=== PATIENT | female | born 1965 | race Hispanic/Latino ===

== ENCOUNTER 2023-05-09 12:52 | Emergency (ER) | payer BC, OTHER, SELFPAY ==
--- OUTSIDE RECORDS SUMMARY | 2023-05-09 12:56 | XMS REPORT | Continuity of Care Document ---
:1965 Author Organization [facility] t Address [address] [facility]. [address] [place] [address] Care Team Providers Name Role Phone HILTON Cook [facility], [facility] Primary Care P hysician Unavailable MORGAN RAZO Attending Clinician Unavailable Morgan Sun Attending Clinician Doctor Unassigned, [place] Attending Clinician Unavailable PADMINI LANDRY Attending Clinician Unavailable MORGAN RAZO Admitting Clinician Unavailable Problems Condition Condition Condition Status Onset Resolution Last Treating Co mments Source Name Details Category Date Date Treatment Clinician Date No known No known Disease Unive rs active active ity of problems problems [facility] Allergies, Adverse Reactions, Alerts Allergy Allergy Status Severity Reaction(s) Onset Inactive Treating Comm ents Source Name Type Date Date Clinician NO KNOWN Drug Active Univers ALLERGIE Class ity of S [facility] Social History Social Habit Start Date Stop Date Quantity Comments Source Exposure to Not sure [facility]-CoV-2 [facility] (event) Branch Alcohol intake 2021-12-26 2021-12-26 Current University 00:00:00 00:00:00 non-drinker of [facility] alcohol [place] (finding) Sex Assigned At [birth year] Universit y of 00:00:00 00:00:00 [facility] Smoking Status Start Date Stop Date Source Never smoker [facility] Medications Ordered Filled Start Stop Current Ordering Indication Dosage Frequency Signature Comments Components Source Medication Medication Date Date Medication? Clinician (SIG) Name Name ceci- Yes [id number] 1{tbl} Take 1 Univers acetaminoph 3-03 tablet by ity of en-caff 00:00: mouth [place] 50-325-40 00 every 4 Medical mg tablet (four) Branch hours as needed for Pain (scale 4-6). HYDROcodone Yes 1{tbl} Take 1 Tab Univers -acetaminop 9-06 by mouth ity of [place] 4 [place] 5[place] 5-325 mg 00 (four) Medica l tablet hours as Branch needed for Pain. HYDROcodone Yes 1{tbl} Take 1 Tab Univers -acetaminop 9-06 by mouth ity of [place] 00:[place] 4 [place] 5[place] 5-325 mg 00 (four) Medica l tablet hours as Branch needed for Pain. Immunizations Ordered Filled Immunization Date Status Comments [facility] e Immunization Name Name SARS-COV-2 COVID-19 2021-02-12 Completed Unive rsity of PFIZER VACCINE 00:00:00 [facility] SARS-COV-2 COVID-19 2021-02-12 Completed Unive rsity of PFIZER VACCINE 00:00:00 [facility] SARS-COV-2 COVID-19 2021-01-22 Completed Unive rsity of PFIZER VACCINE 00:00:00 [facility] SARS-COV-2 COVID-19 2021-01-22 Completed Unive rsity of PFIZER VACCINE 00:00:00 [facility] Vital Signs Vital Name Observation Time Observation Value Comments Source Systolic blood 2021-12-26 22:09:00 139 mm[Hg] Univer sity of pressure [facility] Diastolic blood 2021-12-26 22:09:00 75 mm[Hg] Unive rsity of pressure [facility] Heart rate 2021-12-26 22:09:00 80 /min [facility] Body temperature 2021-12-26 22:09:00 36.83 [facility] rate 2021-12-26 22:09:00 18 /min [facility] Body weight 2021-12-26 22:09:00 66.679 kg [facility] BMI 2021-12-26 22:09:00 30.72 kg/m2 [facility] Oxygen saturation in 2021-12-26 22:09:00 98 /min [facility] Arterial blood by [facility] Pulse oximetry Branch Procedures Procedure Date / Time Performed Performing Clinician Sourc e XR NASAL BONES 2021-12-26 22:43:57 Morgan Razo [place] [facility] f [facility] CONSENT/REFUSAL FOR 2021-12-26 22:00:45 Doctor Unassigned, No Un [facility] DIAGNOSIS AND Name [facility] TREATMENT Encounters Start End Encounter Admission Attending Care Care Encounter Source Date/Time Date/Time Type Type Clinicians Facility Department ID 2023-05-01 2023-05-01 Outpatient SFA S[facility] [id number] [facility] 10:47:58 10:47:58 [address] [facility] [place] 2023-04-17 2023-04-17 Outpatient SFA SFA [id number] [facility] 11:36:29 11:36:29 0623 [facility] [place] 2023-03-13 2023-03-13 Outpatient SFA SFA [id number] [facility] 14:14:07 14:14:07 0519 [facility] [place] 2023-01-26 2023-01-26 Outpatient SFA SFA [id number] [facility] 13:57:02 13:57:02 0403 [facility] [place] 2022-09-15 2022-09-15 Outpatient SFA SFA [id number] [facility] 14:43:29 14:43:29 [id number] [facility] 2021-12-26 2021-12-26 Emergency X DANNI [facility] ERT [id number] Univers 16:09:00 17:22:00 MORGAN hopkins [facility] 2021-12-26 2021-12-26 Emergency Danni [facility] [id number] Univers 16:09:00 17:22:00 Morgan VARGAS [id number] i ty [facility] [id number] [facility] [id number] [facility] 084 Branch 2021-12-26 2021-12-26 Orders Doctor SNÁCHEZ [id number] Univers 00:00:00 00:00:00 Only Unassigned, ZAINAB [id number] ity of [place] [facility] [id number] [facility] [id number] [address] 2021-02-12 2021-02-12 Outpatient Fabricio LANDRY [facility] [id number] [facility] 11:15:00 11:13:06 [facility] 2021-01-22 2021-01-22 Outpatient Fabricio LANDRY [facility] [id number] [facility] 11:20:00 11:12:01 [facility] Results Test Description Test Time Test Comments Results Result Comments Source CULTURE, URINE 2023-04-19 SPECIMEN NUMBER: 12:38:09 [id number] CULTURE, URINE SPECIMEN NUMBER: [id number] SOURCE: URINE REPORT STATUS: FINAL FINAL REPORT: 04/19/2023 <10,000 CFU/ML UROGENITAL CHIRAG PRESENT NO COMMON PATHOGENS UNLESS OTHERWISE INDICATED, ALL TESTING PERFORMED AT [facility] [address] [place], [place] [address] SENIOR ADVISORY: SID SRINIVASAN M.D. CLIA NUMBER [id number] [place]. [id number] CULTURE, URINE 2023-03-15 SPECIMEN NUMBER: 14:24:02 [id number] CULTURE, URINE SPECIMEN NUMBER: [id number] SPECIMEN COMMENT: URINE SOURCE: URINE REPORT STATUS: FINAL FINAL REPORT: 03/15/2023 NO GROWTH AFTER 36 HOURS INCUBATION UNLESS OTHERWISE INDICATED, ALL TESTING PERFORMED AT [facility] [address] [place] [address] SENIOR ADVISORY: SID SRINIVASAN M.D. CLIA NUMBER [id number] [place]. [id number] VITAMIN D, 25 OH 2023-03-14 05:39:12 Test Item Value Reference Range Interpretation Comme nts VITAMIN D, 25 OH (test 18 NG/ML SEE BELOW L E FFECTIVE 11/03/2022, PLEASE NOTE code = 4958) NEW METHODOLOGY IS ELECTROCHEMILUM INESCENCE BINDING ASSAY. NOTE: 25-HYDROX YVITAMIN D ASSAY INCLUDES 25-HYDROXYVITAM IN D2 AND D3. INTERPRETIVE RA NGES PEDIATRIC (<17 YEARS) . . . . . . . . . . . NG/ML 20-100ADULT: IN SUFFICIENT . . . . . . . . . . . . . . N G/ML <20 SUBOPTIMAL . . . . . . . . . . . . . . . NG/ML 20-29 OPTIMAL . . . . . . . . . . . . . . . . . NG/ML 30-100 VITAMIN [id number] 05:38:10 Test Item Value Reference Range Interpretation Comments VITAMIN B-12 (test 461 PG/ML 200-950 UNLESS O THERWISE code = 7380) INDICATED, ALL TESTING PERFORMED AT [facility] [employer] [address] [place] [address], [place] [id number] [place] [address] DIRECTOR: Akanksha CUEVAS SHER NUMBER [id number] CAP ACCREDITATION N O. [id number] CBC W/AUTO DIFF WITH [id number] 03:36:08 Test Item Value Reference Range Interpretation Comments WBC (test code = 8.0 K/UL 3.5-11.0 1001) RBC (test code = 4.15 M/UL 3.80-5.40 1002) HEMOGLOBIN (test code 12.2 G/DL 11.5-15.5 = 1003) HEMATOCRIT (test code 36.1 % 34.0-45.0 = 1004) MCV (test code = 87.0 fL 80.0-99.0 1005) MCH (test code = 29.4 PG 25.0-33.0 1006) MCHC (test code = 33.8 G/DL 31.0-36.0 1007) RDW (test code = 12.1 % 11.5-15.0 1038) NEUTROPHILS (test 61.6 % code = 1008) LYMPHOCYTES (test 29.7 % code = 1010) MONOCYTES (test code 7.0 % = 1011) EOSINOPHILS (test 0.9 % code = 1012) BASOPHILS (test code 0.4 % = 1013) IMMATURE GRANULOCYTES 0.4 % (test code = 1036) NUCLEATED RBCS (test 0.0 /100 WBC'S See_Comment [Aut omated code = 1065) message] The sy stem which generated this result transmitted reference range : 0.0. The refere nce range was not u sed to interpret th is result as normal/abnormal . PLATELET COUNT (test 349 K/UL 130-400 code = 1015) ABSOLUTE NEUTROPHILS 4.90 K/UL 1.50-7.50 (test code = 1066) ABSOLUTE LYMPHOCYTES 2.36 K/UL 1.00-4.00 (test code = 1067) ABSOLUTE MONOCYTES 0.56 K/UL 0.20-1.00 (test code = 1068) ABSOLUTE EOSINOPHILS 0.07 K/UL 0.00-0.50 (test code = 1040) ABSOLUTE BASOPHILS 0.03 K/UL 0.00-0.20 (test code = 1069) ABS IMMATURE 0.03 K/UL 0.00-0.10 GRANULOCYTES (test code = 1020) ABS NUCLEATED RBCS 0.00 K/UL 0.00-0.11 (test code = 73764) PAP TEST, [id number] 09:35:37 Test Item Value Reference Range Interpretation Comments SOURCE: (test Cervical code = 8001) SLIDES: (test 1 code = 8011) LMP: (test code SEE NOTE POST MENOPA USAL = 8027) SPECIMEN (NOTE) Satisfactory f or ADEQUACY: (test evaluation. code = 50050) Endocervical cells/transform ation zone component present. INTERPRETATION: NILM/NO EPITH. (test code = ABNORMALITY;SEE 71752) BELOW ------- ---- NEGATI VE FOR INTRAEPITHELIAL LESION OR MALIGNANCY ( NILM) ------- ------- ------- ------- OTHER COMMENTS: (NOTE) Atrophic lizette nges (test code = present.Partial ly 8081) obscuring infla mmation is present. POST FRAMER Sujey Graham : (test code = 8101) QC TECHNOLOGIST: Shirin (test code = Diego,SCT(ASCP) 8111) CT(IAC) LOCATION: (test (NOTE) Specimens pr ocessed code = 95813) and interprete d at [facility], [address] [place] [address] [phone], Phone: , CLIA: [id number] CPT: (test code (NOTE) 27914 The Pa p test is = 8140) a screening jorge t with an inherent, bu t low probability of error. Your patient sh ould be reminded to con sult you immediately if she experiences any suspicious sign s or symptoms, regar dless of her Pap test result. An alte rnate report format containing imag es or consolidated pr ior Pap history is avai lable as applicable. UNLESS OTHERWISE INDIC ATED, ALL TESTING PER FORMED ATCLINICAL PATH [facility]LOGY [facility], [facility] [place]. [address] [place] [address] [facility] DIRECTOR: JEY KAISER M.D. CLIA NUMBER [id number] CAP ACCREDITATION N O. [id number]
[2023-05-09] MEDS ORDERED: NA CHLORIDE 0.9% 1,000 ML ONE (13:26)
--- NOTE | 2023-05-09 13:28 | RAD REPORT ---
EXAM DESCRIPTION: RAD - Chest Single View - 05/09/2023 1:05 pm CLINICAL HISTORY: COUGH Chest pain. COMPARISON: CHEST PA AND LAT 2 VIEW dated 01/09/2010 FINDINGS: Portable technique limits examination quality. The lungs are grossly clear. The heart is normal in size. No displaced fractures. IMPRESSION: No acute intrathoracic process suspected.
--- NOTE | 2023-05-09 13:29 | RAD REPORT ---
EXAM DESCRIPTION: CT - Head Brain Wo Cont - 05/09/2023 1:22 pm CLINICAL HISTORY: Dizziness;Syncope Headache, drowsiness COMPARISON: No comparisons TECHNIQUE: All CT scans are performed using dose optimization technique as appropriate and may inclu de automated exposure control or mA/KV adjustment according to patient size. FINDINGS: No intracranial hemorrhage, hydrocephalus or extra-axial fluid collection.No areas of brai n edema or evidence of midline shift. The paranasal sinuses and mastoids are clear. The calvarium is intact. IMPRESSION: No acute intracranial abnormality.
[2023-05-09 13:45] LABS: Specific Gravity 1.013 (1.005-1.030); Urine Bacteria None Seen /HPF (<20); Urine Bilirubin NEGATIVE (Negative); Urine Blood Negative (Negative); Urine Clarity Extremely Turbid (Clear); Urine Color Light-Yellow (Yellow); Urine Glucose NEGATIVE (Negative); Urine Mucus Slight /HPF (None Seen); Urine Protein NEGATIVE (Negative); Urine Urobilinogen Normal (Normal)
[2023-05-09 14:15] LABS: Absolute Lymphocytes (CBC) 1.7 K/uL (0.7-4.9); Hematocrit 39.9 % (36.0-45.0); MCV 86.5 fL (80-100); MPV 9.2 fL (7.6-11.3); RBC Red Blood Cell Count 4.62 M/uL (3.86-4.86)
[2023-05-09 14:20] LABS: Protime INR 0.98
[2023-05-09 14:28] LABS: ALT/SGPT 22 U/L (13-56); AST/SGOT 17 U/L (15-37); Albumin 3.6 g/dL (3.4-5.0); Alkaline Phosphatase 79 U/L (45-117); BUN Blood Urea Nitrogen 15 mg/dL (7-18); Bicarbonate 29 mEq/L (21-32); Bilirubin Total 0.3 mg/dL (0.2-1.0); Glomerular Filtration Rate 90 ml/min (=/>90); Glucose Level 93 mg/dL (74-106); Lipase 37 U/L (13-75); Magnesium 2.4 mg/dL (1.6-2.4); NT PRO-BNP 43 pg/mL (<125); Potassium 3.8 mEq/L (3.5-5.1); Protein, Total 7.6 g/dL (6.4-8.2); Sodium Level 140 mEq/L (136-145)
[2023-05-09 14:35] LABS: Bilirubin Direct < 0.1 mg/dL (0-0.2); Bilirubin Indirect, Calculated ND mg/dL (0.2-0.8); Troponin High Sensitivity < 3.0 pg/mL (<58.9)
--- NOTE | 2023-05-09 15:31 | ER ---
Nurse's Notes [facility] Name: Dayanara Plummer Age: 58 yrs Sex: Female : 1965 Arrival Date: 05/09/2023 Time: 12:52 Bed 20 Private MD: Diagnosis: UTI/ Urinary tract infection, site not specified;Syncope Near Presentation: 05/09 12:54 Chief complaint: EMS states: patient started feeling bad after eating at [facility], then had ap3 a syncopal episode at [facility]. Coronavirus screen: At this time, the client does not indicate any symptoms associated with coronavirus-19. Ebola Screen: No symptoms or risks identified at this time. Initial Sepsis Screen: Does the patient meet any 2 criteria? No. Patient's initial sepsis screen is negative. Does the patient have a suspected source of infection? No. Patient's initial sepsis screen is negative. Risk Assessment: Do you want to hurt yourself or someone else? Patient reports no desire to harm self or others. Onset of symptoms was May 09, 2023. 12:54 Method Of Arrival: EMS: [facility] ap3 12:54 Acuity: YANET 3 ap3 12:56 Care prior to arrival: Medication(s) given: zofran 4 mg, IV initiated. 20 GA, in the ap3 right hand. Triage Assessment: 12:56 General: Appears in no apparent distress. Behavior is calm, cooperative, appropriate ap3 for age. Pain: Complains of pain in head Pain currently is 1 out of 10 on a pain scale. Neuro: Level of Consciousness is awake, alert, obeys commands, Oriented to person, place, time, situation. Neuro: Reports a syncopal episode. Cardiovascular: Patient's skin is warm and dry. Respiratory: Airway is patent Respiratory effort is even, unlabored, Respiratory pattern is regular, symmetrical. Historical: - Allergies: 12:56 No Known Allergies; ap3 - Home Meds: 12:56 None [Active]; ap3 - PMHx: 12:56 None; ap3 - Immunization history:: Client reports receiving the 2nd dose of the Covid vaccine. - Social history:: Smoking status: Patient denies any tobacco usage or history of. Screenin:57 [facility] ED Fall Risk Assessment (Adult) History of falling in the last 3 months, ap3 including since admission Yes- single mechanical fall (1 pt) Confusion or Disorientation No (0 pts) Intoxicated or Sedated No (0 pts) Impaired Gait No (0 pts) Mobility Assist Device Used No (0 pt) Altered Elimination No (0 pt). Abuse screen: Denies threats or abuse. Nutritional screening: No deficits noted. Tuberculosis screening: No symptoms or risk factors identified. Assessment: 15:35 Reassessment: awaiting completion of fluids prior to patients departure. ap3 Vital Signs: 12:54 BP 144 / 80; Pulse 85; Resp 17; Temp 98.2; Pulse Ox 95% ; Weight 63.96 kg; Height 4 ft. ap3 10 in. ; 14:33 Pulse 80; Resp 17; Pulse Ox 99% on R/A; ap3 14:50 BP 127 / 70; Pulse 83; Resp 17; Pulse Ox 98% on R/A; ap3 15:23 BP 124 / 68 Supine; Pulse 79; ap3 15:27 BP 136 / 66 Sitting; Pulse 82; ap3 15:30 BP 133 / 73 Standing; Pulse 77; ap3 12:54 Body Mass Index 29.47 (63.96 kg, 147.32 cm) ap3 ED Course: 12:54 Patient arrived in ED. ap3 12:54 Alden Palacios MD is Attending Physician. [facility] 12:55 Triage completed. ap3 12:57 Genie Gagnon, KATHY is Primary Nurse. ap3 12:57 Arm band placed on right wrist. ap3 12:57 Patient has correct armband on for positive identification. Bed in low position. Call ap3 light in reach. Side rails up X2. Pulse ox on. NIBP on. 13:07 XRAY Chest (1 view) In Process Unspecified. EDMS 13:24 CT Head Brain wo Cont In Process Unspecified. EDMS 15:36 Provided Education on: medications prior to administration. ap3 15:36 No provider procedures requiring assistance completed. ap3 15:55 IV discontinued, intact, bleeding controlled, No redness/swelling at site. Pressure ap3 dressing applied. 15:56 Pt visited by daughter. ap3 Administered Medications: 14:02 Drug: NS 0.9% IV 1000 ml Route: IV; Rate: 1 bolus; Site: right hand; ap3 15:35 Follow up: IV Status: Completed infusion ap3 15:34 Drug: Rocephin IV 1 grams Route: IV; Rate: per protocol; Site: right antecubital; ap3 15:50 Follow up: IV Status: Completed infusion ap3 Medication: 12:57 VIS not applicable for this client. ap3 Outcome: 15:31 Discharge ordered by . lizette 15:55 Discharged to home ambulatory, with family. ap3 15:55 Condition: good 15:55 Discharge instructions given to patient, family, Instructed on discharge instructions, follow up and referral plans. Demonstrated understanding of instructions, follow-up care, medications, Prescriptions given X 2. 15:59 Patient left the ED. ap3 Signatures: Dispatcher [employer] EDMS Alden Palacios MD MD cha Prokisch, Amanda, RN RN ap3
--- NOTE | 2023-05-09 15:31 | EDPHYS ---
Physician Documentation [facility] Name: Dayanara Plummer Age: 58 yrs Sex: Female : 1965 Arrival Date: 05/09/2023 Time: 12:52 Bed 20 Private MD: ED Physician Alden Palacios HPI: 05/09 15:25 This 58 yrs old Female presents to ER via EMS with complaints of Syncope. lizette 15:25 The patient has experienced near-syncope, almost passed out, felt dizzy. Onset: The lizette symptoms/episode began/occurred just prior to arrival. Duration: This was a single episode, that lasted 0 second(s). Context: the episode(s) was witnessed, by a bystander, occurred occurred while the patient was walking. Associated injury: The patient did not suffer any apparent associated injury. Associated signs and symptoms: The patient has no apparent associated signs or symptoms. Current symptoms: Currently, the patient is not experiencing any symptoms, the patient feels back to baseline. The patient has not experienced similar symptoms in the past. Historical: - Allergies: 12:56 No Known Allergies; ap3 - Home Meds: 12:56 None [Active]; ap3 - PMHx: 12:56 None; ap3 - Immunization history:: Client reports receiving the 2nd dose of the Covid vaccine. - Social history:: Smoking status: Patient denies any tobacco usage or history of. ROS: 15:26 Constitutional: Negative for fever, chills, and weight loss, Eyes: Negative for injury, lizette pain, redness, and discharge, ENT: Negative for injury, pain, and discharge, Neck: Negative for injury, pain, and swelling, Cardiovascular: Negative for chest pain, palpitations, and edema, Respiratory: Negative for shortness of breath, cough, wheezing, and pleuritic chest pain, Back: Negative for injury and pain, : Negative for injury, bleeding, discharge, and swelling, MS/Extremity: Negative for injury and deformity, Skin: Negative for injury, rash, and discoloration, Psych: Negative for depression, anxiety, suicide ideation, homicidal ideation, and hallucinations, Allergy/Immunology: Negative for hives, rash, and allergies, Endocrine: Negative for neck swelling, polydipsia, polyuria, polyphagia, and marked weight changes, Hematologic/Lymphatic: Negative for swollen nodes, abnormal bleeding, and unusual bruising. 15:26 Abdomen/GI: Positive for nausea. 15:26 Neuro: Positive for near syncope, weakness, Negative for altered mental status, dizziness, gait disturbance, headache, numbness, seizure activity, speech changes. Exam: 15:30 Constitutional: This is a well developed, well nourished patient who is awake, alert, lizette and in no acute distress. Head/Face: Normocephalic, atraumatic. Eyes: Pupils equal round and reactive to light, extra-ocular motions intact. Lids and lashes normal. Conjunctiva and sclera are non-icteric and not injected. Cornea within normal limits. Periorbital areas with no swelling, redness, or edema. ENT: Nares patent. No nasal discharge, no septal abnormalities noted. Tympanic membranes are normal and external auditory canals are clear. Oropharynx with no redness, swelling, or masses, exudates, or evidence of obstruction, uvula midline. Mucous membranes moist. Neck: Trachea midline, no thyromegaly or masses palpated, and no cervical lymphadenopathy. Supple, full range of motion without nuchal rigidity, or vertebral point tenderness. No Meningismus. Chest/axilla: Normal chest wall appearance and motion. Nontender with no deformity. No lesions are appreciated. Cardiovascular: Regular rate and rhythm with a normal S1 and S2. No gallops, murmurs, or rubs. Normal PMI, no JVD. No pulse deficits. Respiratory: Lungs have equal breath sounds bilaterally, clear to auscultation and percussion. No rales, rhonchi or wheezes noted. No increased work of breathing, no retractions or nasal flaring. Abdomen/GI: Soft, non-tender, with normal bowel sounds. No distension or tympany. No guarding or rebound. No evidence of tenderness throughout. Back: No spinal tenderness. No costovertebral tenderness. Full range of motion. Skin: Warm, dry with normal turgor. Normal color with no rashes, no lesions, and no evidence of cellulitis. MS/ Extremity: Pulses equal, no cyanosis. Neurovascular intact. Full, normal range of motion. Neuro: Awake and alert, GCS 15, oriented to person, place, time, and situation. Cranial nerves II-XII grossly intact. Motor strength 5/5 in all extremities. Sensory grossly intact. Cerebellar exam normal. Normal gait. Psych: Awake, alert, with orientation to person, place and time. Behavior, mood, and affect are within normal limits. 15:30 ECG was reviewed by the Attending Physician. Vital Signs: 12:54 BP 144 / 80; Pulse 85; Resp 17; Temp 98.2; Pulse Ox 95% ; Weight 63.96 kg; Height 4 ft. ap3 10 in. ; 14:33 Pulse 80; Resp 17; Pulse Ox 99% on R/A; ap3 14:50 BP 127 / 70; Pulse 83; Resp 17; Pulse Ox 98% on R/A; ap3 15:23 BP 124 / 68 Supine; Pulse 79; ap3 15:27 BP 136 / 66 Sitting; Pulse 82; ap3 15:30 BP 133 / 73 Standing; Pulse 77; ap3 12:54 Body Mass Index 29.47 (63.96 kg, 147.32 cm) ap3 MDM: 12:54 Patient medically screened. lizette 15:29 Differential diagnosis: Nonspecific abd pain, viral gastroenteritis, gastroenteritis. lizette Differential Diagnosis: cardiac arrhythmia, cerebrovascular accident, emotional response, seizure, transient ischemic attack, vasovagal episode. Data reviewed: vital signs, nurses notes, lab test result(s), EKG, radiologic studies, CT scan, plain films. Consideration of Admission/Observation Escalation of care including admission/observation considered. I considered the following discharge prescriptions or medication management in the emergency department Medications were administered in the Emergency Department. See MAR. Test considered but Not performed: MRI: no mri brain. Historians other than the Patient: Daughter/Son: daughter. Care significantly affected by the following chronic conditions: none. 05/09 12:55 Order name: Basic Metabolic Panel; Complete Time: 15:23 lizette 05/09 12:55 Order name: CBC with Diff; Complete Time: 15:23 lizette 05/09 12:55 Order name: LFT's; Complete Time: 15:23 05/09 12:55 Order name: Magnesium; Complete Time: 15:23 lizette 05/09 12:55 Order name: NT PRO-BNP; Complete Time: 15:23 05/09 12:55 Order name: PT-INR; Complete Time: 15:23 05/09 12:55 Order name: Troponin HS; Complete Time: 15:23 05/09 12:55 Order name: Lipase; Complete Time: 15:23 05/09 12:55 Order name: Urinalysis w/ reflexes; Complete Time: 15:23 lizette 05/09 12:55 Order name: XRAY Chest (1 view); Complete Time: 15:23 lizette 05/09 12:55 Order name: CT Head Brain wo Cont; Complete Time: 15:23 lizette 05/09 12:55 Order name: EKG; Complete Time: 12:56 05/09 12:55 Order name: Cardiac monitoring; Complete Time: 13:46 05/09 12:55 Order name: EKG - Nurse/Tech; Complete Time: 13:46 05/09 12:55 Order name: IV Saline Lock; Complete Time: 12:58 [facility] 05/09 12:55 Order name: Labs collected and sent; Complete Time: 14:01 lizette 05/09 12:55 Order name: O2 Per Protocol; Complete Time: 12:57 05/09 12:55 Order name: O2 Sat Monitoring; Complete Time: 12:58 lizette 05/09 15:25 Order name: Orthostatics; Complete Time: 15:34 [facility] EC:30 Rate is 85 beats/min. QRS [place] is Normal. SD interval is normal. QRS interval is lizette normal. QT interval is normal. No Q waves. T waves are Normal. No ST changes noted. Clinical impression: NSR w/ Non-specific ST/T Changes and No evidence of ischemia. Interpreted by me. Reviewed by me. Administered Medications: 14:02 Drug: NS 0.9% IV 1000 ml Route: IV; Rate: 1 bolus; Site: right hand; ap3 15:35 Follow up: IV Status: Completed infusion ap3 15:34 Drug: Rocephin IV 1 grams Route: IV; Rate: per protocol; Site: right antecubital; ap3 15:50 Follow up: IV Status: Completed infusion ap3 Disposition Summary: 05/09/23 15:31 Discharge Ordered Location: Home lizette Problem: new lizette Symptoms: have improved lizette Condition: Stable lizette Diagnosis - UTI/ Urinary tract infection, site not specified lizette - Syncope Near lizette Followup: lizette - With: Private Physician - When: 2 - 3 days - Reason: Recheck today's complaints, Re-evaluation by your physician Discharge Instructions: - Discharge Summary Sheet lizette - Near-Syncope lizette - Urinary Tract Infection, Adult lizette - Weakness lizette - Near-Syncope, Awxc-ia-Ipzt lizette - Syncope, Bxsf-vv-Askq lizette - Weakness, Xuqw-ej-Oyeb [facility] Forms: - Medication Reconciliation Form [facility] - Thank You Letter lizette - Antibiotic Education lizette - Prescription Opioid Use lizette - Patient Portal Instructions [facility] Prescriptions: - Zofran 4 mg Oral Tablet - take 1 tablet by ORAL route every 12 hours As needed; 144 tablet; Refills: 0, [facility] Product Selection Permitted - Macrobid 100 mg Oral Capsule - take 1 capsule by ORAL route every 12 hours for 7 days; 14 capsule; Refills: 0, [facility] Product Selection Permitted Signatures: Dispatcher [employer] Alden Galo MD MD cha Prokisch, Amanda, RN RN ap3
[2023-05-09] MEDS ORDERED: CEFTRIAXONE 1000 MG/VIAL ONE (15:42)
[2023-05-09 16:03] VITALS: TEMP 98.2
[2023-05-09 16:06] VITALS: O2SAT 98
[2023-05-09 16:08] VITALS: BP 133/73
--- NOTE | 2023-05-11 11:47 | EKG ---
Test Date: 2023-05-09 Test Time: 13:43:21 [employer]ird[employer] Fitter: JUJU MEASUREMENT RESULTS: Intervals: Rate: 85 LA: 154 QRSD: 132 QT: 408 QTc: 485 [place]: P: 73 LA: 154 QRS: 98 T: 59 INTERPRETIVE STATEMENTS: Sinus rhythm Right bundle branch block Abnormal ECG No previous ECG available for comparison Electronically Signed On 05-11-23 11:45:20 CDT by Roger Holley
== END 2023-05-09 15:59 | disposition home or self-care (01) ==
LOC: ER 12:52
DX: N39.0 Urinary tract infection, site not specified (principal)
CPT/HCPCS: 96365; 96361; 93005; 85025; 81001; 80048; 36415; 83735; 85610; 80076; 84484; 83690; 83880; 70450; 71045; 99284; J7030; J0696

== ENCOUNTER 2024-04-23 17:14 | Emergency (ER) | payer OTHER ==
--- OUTSIDE RECORDS SUMMARY | 2024-04-23 17:17 | XMS REPORT | Continuity of Care Document ---
Author Name Unknown Address [address] [place] [address] [facility] thconnect Address [address] [place] [address] Care Team Providers Care University Teacher Name Role Phone [facility], [facility] Care Physician Unavailable PITA RAZO Attending Clinician Unavailable Pita Sun Attending Clinician [phone] Doctor Unassigned, [place] Attending Clinician U PADMINI Martines Attending Clinician Unavailable PITA RAZO Admitting Clinician Unavailable Problems Condition Name Condition Details Condition Category Status Onset Date Resolution Date Last Treatment Date Treating Clinician Comments Source No known active problems No known active problems Disease Univers [facility] Allergies, Adverse Reactions, Alerts Allergy Name Allergy Type Status Severity Reaction(s) Onset Date Inactive Date Treating Clinician Comments Source NO KNOWN ALLERGIE S Drug Class Active [facility] Social History Social Habit Start Date Stop Date Quantity Comments Source Exposure to SARS-CoV-2 (event) Not sure [facility] Alcohol intake 2021-12-26 00:00:00 2021-12-26 00:00:00 Current non-drinker of alcohol (finding) [facility] Sex Ass[birth year] At 1965 00:00:00 1965 00:00:00 [facility] Smoking Status Start Date Stop Date Source Never smoker [facility] Medications Ordered Medication Name Filled Medication Name Start Date Stop Date Current Medication? Ordering Clinician Indication Dosage Frequency Signature (SIG) Comments Components Source butalbital- acetaminoph en-caff 50-325-40 mg tablet 12-26 00:00: 00 Yes [id number] 1{tbl} Take 1 tablet by mouth every 4 (four) hours as needed for Pain (scale 4-6). [facility] HYDROcodone -acetaminop hen (NORCO 5) 5-325 mg tablet 07-01 00:00: 00 Yes 1{tbl} Take 1 Tab by mouth every 4 (four) hours as needed for Pain. [facility] Vital Signs Vital Name Observation Time Observation Value Comments S ource Systolic blood pressure 2021-12-26 22:09:00 139 mm[Hg] [facility] Diastolic blood pressure 2021-12-26 22:09:00 75 mm[Hg] [facility] Heart rate 2021-12-26 22:09:00 80 /min [facility] Body temperature 2021-12-26 22:09:00 36.83 Naomy [facility] Respiratory rate 2021-12-26 22:09:00 18 /min [facility] Body weight 2021-12-26 22:09:00 66.679 kg [facility] BMI 2021-12-26 22:09:00 30.72 kg/m2 [facility] Oxygen saturation in Arterial blood by Pulse oximetry 2021-12-26 22:09:00 98 /min [facility] Procedures Procedure Date / Time Performed Performing Clinicia n Source XR NASAL BONES 2021-12-26 22:43:57 Pita Razo [facility] CONSENT/REFUSAL FOR DIAGNOSIS AND TREATMENT 2021-12-26 22:00:45 Doctor Unassigned, [place] [facility] Encounters Start Date/Time End Date/Time Encounter Type Admission Type Attending Clinicians Care Facility Care Department Encounter ID Source 2024-02-26 14:04:10 2024-02-26 14:04:10 Outpatient SFA [facility] [id number] 2024-02-12 13:19:12 2024-02-12 13:19:12 Outpatient SFA [facility] [id number] [facility] 2024-01-25 10:39:28 2024-01-25 10:39:28 Outpatient ANGEL [facility] [id number] 2023-11-27 07:57:03 2023-11-27 07:57:03 Outpatient SFA [facility] [id number] [facility] 2023-05-15 10:35:41 2023-05-15 10:35:41 Outpatient SFA [facility] [id number] [facility] 2023-05-01 10:47:58 2023-05-01 10:47:58 Outpatient SFA [facility] [id number] 2023-04-17 11:36:29 2023-04-17 11:36:29 Outpatient SFA [facility] [id number] 2023-03-13 14:14:07 2023-03-13 14:14:07 Outpatient ANGEL [facility] [id number] 2023-01-26 13:57:02 2023-01-26 13:57:02 Outpatient SFA [facility] [id number] 2022-09-15 14:43:29 2022-09-15 14:43:29 Outpatient ANGEL [facility] [id number] 2021-12-26 16:09:00 2021-12-26 17:22:00 Emergency X PITA RZAO [facility] ERT [id number] [facility] 2021-12-26 16:09:00 2021-12-26 17:22:00 Emergency Pita Razo [facility] [id number] [facility] 2021-12-26 00:00:00 2021-12-26 00:00:00 Orders Only Doctor Unassigned, [place] [facility] [id number] [facility] 2021-02-12 11:15:00 2021-02-12 11:13:06 Outpatient PADMINI LUIS [facility] [id number] [facility] 2021-01-22 11:20:00 2021-01-22 11:12:01 Outpatient PADMINI LUIS [facility] [id number] [facility] Results Test Description Test Time Test Comments Results Result Co mments Source CULTURE, URINE 2023-04-19 12:38:09 SPECIMEN NUMBER: [id number] CULTURE, URINE SPECIMEN NUMBER: [id number] SOURCE: URINE REPORT STATUS: FINAL FINAL REPORT: 04/19/2023 <10,000 CFU/ML UROGENITAL CHIRAG PRESENT NO COMMON PATHOGENS UNLESS OTHERWISE INDICATED, ALL TESTING PERFORMED AT [facility] [employer] [address] [place] [address] WHEAT SHIPPER: SID SRINIVASAN M.D. CLIA NUMBER [id number] [place]. [id number] CULTURE, URINE 2023-03-15 14:24:02 SPECIMEN NUMBER: [id number] CULTURE, URINE SPECIMEN NUMBER: [id number] SPECIMEN COMMENT: URINE SOURCE: URINE REPORT STATUS: FINAL FINAL REPORT: 03/15/2023 NO GROWTH AFTER 36 HOURS INCUBATION UNLESS OTHERWISE INDICATED, ALL TESTING PERFORMED AT [facility] [employer] [address] [place] [address] WHEAT SHIPPER: SID SRINIVASAN M.D. CLIA NUMBER [id number] [place]. [id number] VITAMIN [id number] 05:38:10* Test Item Value Reference Range Interpretation Comme nts VITAMIN B-12 (test code = 2840) 461 PG/ML 200-950 UNLESS OTHERWISE INDICATED, ALL TESTING PERFORMED AT [facility] [employer] [address] [place] [address] WHEAT SHIPPER: SID SRINIVASAN M.D. CLIA NUMBER [id number] [place]. [id number] CBC W/AUTO DIFF WITH [id number] 03:36:08* Test Item Value Reference Range Interpretation Comme nts WBC (test code = 1001) 8.0 K/UL 3.5-11.0 RBC (test code = 1002) 4.15 M/UL 3.80-5.40 HEMOGLOBIN (test code = 1003) 12.2 G/DL 11.5-15.5 HEMATOCRIT (test code = 1004) 36.1 % 34.0-45.0 MCV (test code = 1005) 87.0 fL 80.0-99.0 MCH (test code = 1006) 29.4 PG 25.0-33.0 MCHC (test code = 1007) 33.8 G/DL 31.0-36.0 RDW (test code = 1038) 12.1 % 11.5-15.0 NEUTROPHILS (test code = 1008) 61.6 % LYMPHOCYTES (test code = 1010) 29.7 % MONOCYTES (test code = 1011) 7.0 % EOSINOPHILS (test code = 1012) 0.9 % BASOPHILS (test code = 1013) 0.4 % IMMATURE GRANULOCYTES (test code = 1036) 0.4 % NUCLEATED RBCS (test code = 1065) 0.0 /100 WBC'S See_Comment [Automated messa ge] The system which generated this result transmitted reference range: 0.0. The reference range was not used to interpret this result as normal/abnormal. PLATELET COUNT (test code = 1015) 349 K/UL 130-400 ABSOLUTE NEUTROPHILS (test code = 1066) 4.90 K/UL 1.50-7.50 ABSOLUTE LYMPHOCYTES (test code = 1067) 2.36 K/UL 1.00-4.00 ABSOLUTE MONOCYTES (test code = 1068) 0.56 K/UL 0.20-1.00 ABSOLUTE EOSINOPHILS (test code = 1040) 0.07 K/UL 0.00-0.50 ABSOLUTE BASOPHILS (test code = 1069) 0.03 K/UL 0.00-0.20 ABS IMMATURE GRANULOCYTES (test code = 1020) 0.03 K/UL 0.00-0.10 ABS NUCLEATED RBCS (test code = 85972) 0.00 K/UL 0.00-0.11 PAP TEST, [id number] 09:35:37* Test Item Value Reference Range Interpretation Comme nts SOURCE: (test code = 8001) Cervical SLIDES: (test code = 8011) 1 LMP: (test code = 8021) SEE NOTE POST MENOPAUSAL SPECIMEN ADEQUACY: (test code = 56094) (NOTE) Satisfactory for evaluation. Endocervical cells/transformation zone component present. INTERPRETATION: (test code = 12267) NILM/NO EPITH. ABNORMALITY;SEE BELOW -- ---- NEGATIVE FOR INTRAEPITHELIAL LESION OR MALIGNANCY (NILM) ------- OTHER COMMENTS: (test code = 8081) (NOTE) Atrophic changes present.Partially obscuring inflammation is present. [employer] PLANT MANAGER : (test code = 8101) Sujey Graham TECHNOLOGIST: (test code = 8111) Shirin Cortez,[facility](ASCP) CT(IAC) LOCATION: (test code = 89742) (NOTE) Specimens proces sed and interpreted at [facility], [address] [place] [address], , CLIA: [id number] CPT: (test code = 8140) (NOTE) [address] is a screening test with an inherent, but low probability of error. Your patient should be reminded to consult you immediately if she experiences any suspicious signs or symptoms, regardless of her Pap test result. An alternate report format containing images or consolidated prior Pap history is available as applicable. UNLESS OTHERWISE INDICATED, ALL TESTING PERFORMED [facility] [employer] [address] [place] [address] WHEAT SHIPPER: JEY KAISER M.D. CLIA NUMBER [id number] [facility] [place]. [id number]
[2024-04-23] MEDS ORDERED: MECLIZINE HCL 12.5 MG TAB ONE (18:14)
[2024-04-23] MEDS ORDERED: NA CHLORIDE 0.9% 1,000 ML ONE (18:14)
[2024-04-23] MEDS ORDERED: ONDANSETRON 4 MG/2 ML VIAL ONE (18:14)
[2024-04-23 18:35] LABS: ALT/SGPT 19 U/L (13-56); Albumin 3.6 g/dL (3.4-5.0); Alkaline Phosphatase 76 U/L (45-117); Anion Gap 9.2 mEq/L (5.0-15.0); BUN Blood Urea Nitrogen 21 mg/dL (7-18); Bicarbonate 28 mEq/L (21-32); Bilirubin Total 0.2 mg/dL (0.2-1.0); Globulin 3.6 g/dL (2.3-3.5); Glomerular Filtration Rate 91 ml/min (=/>90); Glucose Level 123 mg/dL (74-106); Lipase 42 U/L (13-75); Potassium 4.2 mEq/L (3.5-5.1); Protein, Total 7.2 g/dL (6.4-8.2); Sodium Level 140 mEq/L (136-145)
[2024-04-23 18:36] LABS: Absolute Lymphocytes (CBC) 1.7 K/uL (0.7-4.9); Absolute Monocytes 0.7 K/uL (0.1-1.3); Absolute Neutrophil 7.2 K/uL (1.8-8.0); Basophils % 0.3 % (0-1.3); Eosinophils % 0.5 % (0-4.4); Hematocrit 37.4 % (36.0-45.0); Hemoglobin 12.6 g/dL (12.0-15.0); Lymphocytes % 17.5 % (15.3-44.8); MCH 29.3 pg (27.0-35.0); MCHC 33.8 g/dL (32.0-36.0); MCV 86.7 fL (80-100); Monocytes % 7.2 % (3.3-12.3); Neutrophils % 74.5 % (41.7-73.7); Nucleated Red Blood Cells % 0.1 % (0-0); Platelets 354 thou/uL (152-406); RBC Red Blood Cell Count 4.31 M/uL (3.86-4.86); Red Cell Distribution Width 12.3 % (12.1-15.2)
[2024-04-23 18:39] LABS: AST/SGOT < 10 U/L (15-37); Bilirubin Direct < 0.2 mg/dL (0-0.2)
--- NOTE | 2024-04-23 19:36 | RAD REPORT ---
EXAM DESCRIPTION: CT - Head Brain Wo Cont - 04/23/2024 7:11 pm CLINICAL HISTORY: DIZZINESS COMPARISON: Head angio dated 04/23/2024; Head Brain Wo Cont dated 05/09/2023 TECHNIQUE: Noncontrast head CT images ad were obtained without IV contrast. Multiplanar reformats we re generated and reviewed. All CT scans are performed using dose optimization technique as appropriate and may include automated exposure control or mA/KV adjustment according to patient size. FINDINGS: No intracranial hemorrhage, mass, or edema. Midline structures are unremarkable. Normal ventricular caliber for age. Plascencia-white matter differentiation is preserved, without evidence of acute infarct. No abnormal extra- axial fluid collections. Mastoid air cells and visualized portions of the paranasal sinuses are clear. No acute bony findings. Left parietal sebaceous cyst again seen. IMPRESSION: No evidence of an acute intracranial process.
[2024-04-23 19:39] LABS: Specific Gravity 1.022 (1.005-1.030); Urine Bilirubin NEGATIVE (Negative); Urine Blood Negative (Negative); Urine Clarity Clear (Clear); Urine Color Colorless (Yellow); Urine Glucose NEGATIVE (Negative); Urine Ketones NEGATIVE (Negative); Urine Microscopic Reflex YN NO UMIC; Urine Nitrite NEGATIVE (Negative); Urine Protein NEGATIVE (Negative); Urine Urobilinogen Normal (Normal); Urine pH 6.5 (5.0-7.0)
--- NOTE | 2024-04-23 19:41 | RAD REPORT ---
EXAM DESCRIPTION: CT - Neck Angio - 04/23/2024 7:11 pm CLINICAL HISTORY: dizziness COMPARISON: Head Brain Wo Cont dated 04/23/2024; Head angio dated 04/23/2024; Abdomen Pelvis W Contr ast dated 04/23/2024 TECHNIQUE: Axial CT angiography images of the neck was performed with multiplanar and maximum intens ity projection reconstructions. Images performed following intravenous administration of iodinated co ntrast. All CT scans are performed using dose optimization technique as appropriate and may include automated exposure control or mA/KV adjustment according to patient size. Quantification of carotid stenosis, if any, is performed according to NASCET criteria. FINDINGS: A left aortic arch is identified with normal three vessel configuration of the great vesse ls. No significant flow abnormality is seen of the common carotid bilaterally. No significant stenosis is identified involving the cervical segments of both internal carotid arteri es. Normal flow is seen within both vertebral arteries. Diminutive caliber of the right vertebral artery. IMPRESSION: No significant flow abnormality of the neck vessels is identified. CAROTID STENOSIS REFERENCE USING NASCET CRITERIA: % ICA stenosis = (1 - narrowest ICA diameter/diameter of distal cervical ICA) x 100. Mild - <50% stenosis. Moderate - 50-69% stenosis. Severe - 70-94% stenosis. Near occlusion - 95-99% stenosis. Occluded - 100% stenosis.
--- NOTE | 2024-04-23 19:46 | RAD REPORT ---
EXAM DESCRIPTION: CT - Head angio - 04/23/2024 7:12 pm CLINICAL HISTORY: dizziness, weakness COMPARISON: Head Brain Wo Cont dated 05/09/2023 TECHNIQUE: Axial CT angiography images of the head was performed with multiplanar and maximum intens ity projection reconstructions. Images performed following intravenous administration of iodinated co ntrast. All CT scans are performed using dose optimization technique as appropriate and may include automated exposure control or mA/KV adjustment according to patient size. FINDINGS: No evidence of large vessel occlusion. No evidence of aneurysm or dissection flap is detec mushtaq. No flow-limiting stenosis or vascular malformation identified. Antegrade flow is seen in the vertebral arteries. The vertebral arteries are codominant. The visualized dural venous sinuses are grossly patent however the right transverse sinus appears asy mmetrically smaller with an arachnoid granulation within. IMPRESSION: No evidence of large vessel occlusion or flow-limiting stenosis.
--- NOTE | 2024-04-23 19:51 | RAD REPORT ---
EXAM DESCRIPTION: CT - Abdomen Pelvis W Contrast - 04/23/2024 7:12 pm CLINICAL HISTORY: abd pain, flank pain COMPARISON: CT ABD PELVIS W CONTRAST dated 11/06/2015 TECHNIQUE: Thin cut axial CT imaging of the abdomen and pelvis was performed following intravenous a dministration of iodinated contrast. Multiplanar reformats were generated and reviewed. All CT scans are performed using dose optimization technique as appropriate and may include automated exposure control or mA/KV adjustment according to patient size. FINDINGS: No suspicious findings in the lung bases. The liver, spleen, adrenal glands, and pancreas show no suspicious findings. Gallbladder was surgical ly removed. Symmetric renal function is seen with no hydronephrosis or suspicious renal mass. No dilated bowel loops or bowel wall thickening. No free air, free fluid or inflammatory stranding. U mbilical hernia containing fat. No suspicious mass or bulky lymphadenopathy. The urinary bladder is w ithout significant finding. No suspicious bony findings. IMPRESSION: No acute intra-abdominal process.
--- NOTE | 2024-04-23 20:00 | EDPHYS ---
Physician Documentation [facility] Name: Dayanara Plummer Age: 59 yrs Sex: Female : 1965 Arrival Date: 04/23/2024 Time: 17:14 Bed 15 Private MD: ROWENA Physician Issac Wilson HPI: 04/23 17:44 This 59 yrs old Female presents to ER via Wheelchair with complaints of rn Dizziness, Nausea, Back Pain. 17:44 The patient presents with dizziness, lightheadedness, vertigo. Onset: The rn symptoms/episode began/occurred at an unknown time. Modifying factors: The symptoms are alleviated by nothing, the symptoms are aggravated by movement of head. Associated signs and symptoms: Pertinent positives: nausea, Pertinent negatives: abdominal pain, chest pain, focal weakness, seizure, shortness of breath, syncope. Severity of symptoms: At their worst the symptoms were moderate in the emergency department the symptoms have improved. The patient has experienced similar episodes in the past. Patient reports several episodes in the past, happened again today. States last episode a few days ago. Has prescription for meclizine that helps symptoms. No focal weakness or numbness. No head injury. No syncope. No chest pain. Does report epigastric abdominal pain and right flank pain that began earlier today. No vomiting. Does report nausea.. Historical: - Allergies: 17:34 No Known Allergies; cm10 - PMHx: 17:34 None; cm10 - PSHx: 17:34 Cholecystectomy; cm10 - Immunization history:: Adult Immunizations up to date. - Infectious Disease History:: Denies. - Social history:: Smoking status: Patient denies any tobacco usage or history of. - Family history:: not pertinent. - Hospitalizations: : No recent hospitalization is reported. ROS: 17:44 Constitutional: Negative for fever, chills, and weight loss, Eyes: Negative for injury, rn pain, redness, and discharge, ENT: Negative for injury, pain, and discharge, Neck: Negative for injury, pain, and swelling, Cardiovascular: Negative for chest pain, palpitations, and edema, Respiratory: Negative for shortness of breath, cough, wheezing, and pleuritic chest pain, Abdomen/GI: Positive for abdominal pain and nausea Back: Negative for injury and pain, MS/Extremity: Negative for injury and deformity, Skin: Negative for injury, rash, and discoloration, Neuro: Negative for headache, weakness, numbness, tingling, and seizure, Exam: 17:44 Constitutional: This is a well developed, well nourished patient who is awake, alert, rn and in no acute distress. Head/Face: Normocephalic, atraumatic. Eyes: Pupils equal round and reactive to light, extra-ocular motions intact. Neck: No Meningismus. Cardiovascular: Regular rate and rhythm. No pulse deficits. Respiratory: No increased work of breathing, no retractions or nasal flaring. Abdomen/GI: Soft, mild epigastric tenderness. No rebound or guarding. Negative Mccall MS/ Extremity: Pulses equal, no cyanosis. Neuro: Awake and alert, GCS 15, oriented to person, place, time, and situation. Cranial nerves II-XII grossly intact. Motor strength 5/5 in all extremities. Sensory grossly intact. Cerebellar exam normal. Reproducible dizziness with turning head to the left rapidly. Vital Signs: 17:32 BP 118 / 47; Pulse 83; Resp 16; Temp 97.4(O); Pulse Ox 96% ; Weight 63.5 kg; Height 4 cm10 ft. 11 in. ; Pain 7/10; 18:51 BP 111 / 71; Pulse 80; Resp 16; Pulse Ox 99% ; bp 20:15 BP 117 / 70; Pulse 77; Resp 18; Temp 97.4; Pulse Ox 98% ; cp4 17:32 Body Mass Index 28.28 (63.50 kg, 149.86 cm) cm10 17:32 Pain Scale: Adult cm10 MDM: 17:26 Patient medically screened. rn 20:03 Differential diagnosis: Vertigo, CVA, pyelo-, mechanical back pain, kidney stone. Data rt reviewed: vital signs, nurses notes, lab test result(s), EKG, radiologic studies. Consideration of Admission/Observation Escalation of care including admission/observation considered. Symptoms consistent with benign positional vertigo, not consistent with acute CVA, symptoms significantly improving with treatment in the ED, does not require admission for CVA workup. Rest of workup is benign, patient struck to follow-up with primary. I considered the following discharge prescriptions or medication management in the emergency department Medications were administered in the Emergency Department. See MAR. Independent interpretation of the following test(s) in the Emergency Department CT Scan: My interpretation is No intracranial hemorrhage seen on interpretation of CT scan images. Counseling: I had a detailed discussion with the patient and/or guardian regarding the historical points, exam findings, and any diagnostic results supporting the discharge/admit diagnosis, lab results, radiology results, the need for outpatient follow up, to return to the emergency department if symptoms worsen or persist or if there are any questions or concerns that arise at home. Response to treatment: the patient's symptoms have markedly improved after treatment. 04/23 17:42 Order name: CBC with Diff; Complete Time: 18:55 rn 04/23 17:42 Order name: Basic Metabolic Panel; Complete Time: 18:55 rn 04/23 17:42 Order name: Urinalysis w/ reflexes; Complete Time: 19:40 rn 04/23 17:42 Order name: LFT's; Complete Time: 18:55 rn 04/23 17:42 Order name: Lipase; Complete Time: 18:55 rn 04/23 17:42 Order name: CT Head Brain wo Cont; Complete Time: 19:40 rn 04/23 17:42 Order name: Neck Angio CT; Complete Time: 19:52 rn 04/23 17:42 Order name: CT Abd/Pelvis - IV Contrast Only; Complete Time: 19:52 rn 04/23 18:16 Order name: Head angio; Complete Time: 19:52 EDAZ 04/23 17:42 Order name: IV Start; Complete Time: 18:20 rn Administered Medications: 18:00 Drug: Meclizine PO 25 mg PO once Route: PO; bp 19:36 Follow up: Response: No adverse reaction cp4 18:10 Drug: NS 0.9% IV 1000 ml IV at 1000 ml once Route: IV; Rate: 1000 ml; Site: right bp antecubital; 19:36 Follow up: Response: No adverse reaction; IV Status: Completed infusion; IV Intake: cp4 1000ml 18:10 Drug: Ondansetron IVP 4 mg IVP once; over 2 minutes Route: IVP; Site: right antecubital;bp 19:35 Follow up: Response: No adverse reaction cp4 Disposition Summary: 04/23/24 19:59 Discharge Ordered Notes: Location: Home rt Problem: new rt Symptoms: have improved rt Condition: Stable rt Diagnosis - Benign paroxysmal vertigo rt - Low back pain rt Followup: rt - With: Private Physician - When: 2 - 3 days - Reason: Discharge Instructions: - Discharge Summary Sheet rt - Acute Back Pain, Adult rt - Benign Positional Vertigo rt Forms: - Medication Reconciliation Form rt - Antibiotic Education rt - Prescription Opioid Use rt - Patient Portal Instructions rt - Leadership Thank You Letter rt Prescriptions: - Cyclobenzaprine 5 mg Oral Tablet - take 1 tablet ORAL route 3 times per day As needed; 15 tablet; Refills: 0, rt Product Selection Permitted Signatures: Dispatcher [employer] EDJohn Huizar MD MD rn Peltier, Brian RN RN bp Issac Wilson MD MD rt Salome Macias RN RN cm Mey Bowling cp4
--- NOTE | 2024-04-23 20:00 | ER ---
Nurse's Notes [facility] Name: Dayanara Plummer Age: 59 yrs Sex: Female : 1965 Arrival Date: 04/23/2024 Time: 17:14 Bed 15 Private MD: Diagnosis: Benign paroxysmal vertigo;Low back pain Presentation: 04/23 17:32 Chief complaint: Patient states: Dizziness that is worse when moving her head and cm10 epigastric pain onset today at 1500 while at work. Coronavirus screen: Client denies travel out of the [place] in the last 14 days. At this time, the client does not indicate any symptoms associated with coronavirus-19. Ebola Screen: Patient denies travel to an Ebola-affected area in the 21 days before illness onset. No symptoms or risks identified at this time. Initial Sepsis Screen: Does the patient meet any 2 criteria? No. Patient's initial sepsis screen is negative. Does the patient have a suspected source of infection? No. Patient's initial sepsis screen is negative. Risk Assessment: Do you want to hurt yourself or someone else? Patient reports no desire to harm self or others. Onset of symptoms was April 23, 2024. 17:32 Method Of Arrival: Wheelchair cm10 17:32 Acuity: YANET 3 cm10 Triage Assessment: 17:35 General: Appears in no apparent distress. comfortable, Behavior is calm, cooperative. cm10 Neuro: No deficits noted. Level of Consciousness is awake, alert, obeys commands, Oriented to person, place, time, situation, Appropriate for age. Respiratory: No deficits noted. Airway is patent Respiratory effort is even, unlabored, Respiratory pattern is regular, symmetrical. Historical: - Allergies: 17:34 No Known Allergies; cm10 - PMHx: 17:34 None; cm10 - PSHx: 17:34 Cholecystectomy; cm10 - Immunization history:: Adult Immunizations up to date. - Infectious Disease History:: Denies. - Social history:: Smoking status: Patient denies any tobacco usage or history of. - Family history:: not pertinent. - Hospitalizations: : No recent hospitalization is reported. Screenin:45 [facility] ED Fall Risk Assessment (Adult) History of falling in the last 3 months, bp including since admission No falls in past 3 months (0 pts) Confusion or Disorientation No (0 pts) Intoxicated or Sedated No (0 pts) Impaired Gait No (0 pts) Mobility Assist Device Used No (0 pt) Altered Elimination No (0 pt) Score/Fall Risk Level 0 - 2 = Low Risk. Abuse screen: Denies threats or abuse. Denies injuries from another. Nutritional screening: No deficits noted. Tuberculosis screening: No symptoms or risk factors identified. Assessment: 17:45 General: Appears in no apparent distress. Behavior is appropriate for age. Pain: bp Complains of pain in back. GI: Reports nausea, vomiting. 18:51 Reassessment: PT TO CT. GI: Abdomen is non-distended, Bowel sounds present X 4 quads. bp Vital Signs: 17:32 BP 118 / 47; Pulse 83; Resp 16; Temp 97.4(O); Pulse Ox 96% ; Weight 63.5 kg; Height 4 cm10 ft. 11 in. ; Pain 7/10; 18:51 BP 111 / 71; Pulse 80; Resp 16; Pulse Ox 99% ; bp 20:15 BP 117 / 70; Pulse 77; Resp 18; Temp 97.4; Pulse Ox 98% ; cp4 17:32 Body Mass Index 28.28 (63.50 kg, 149.86 cm) cm10 17:32 Pain Scale: Adult cm10 ED Course: 17:18 Patient arrived in ED. ts1 17:26 Asa Ruano, RN is Primary Nurse. bp 17:26 John Espinoza MD is Attending Physician. rn 17:34 Triage completed. cm10 17:35 Arm band placed on Patient placed in an exam room, on a stretcher, on pulse oximetry. cm10 17:45 Patient has correct armband on for positive identification. bp 18:10 Inserted saline lock: 22 gauge in right antecubital area, using aseptic technique. bp Blood collected. 18:57 Attending Physician role handed off by John Espinoza MD rt 18:57 Issac Wilson MD is Attending Physician. rt 19:13 CT Head Brain wo Cont In Process Unspecified. EDMS 19:[address] In Process Unspecified. EDMS 19:13 CT Abd/Pelvis - IV Contrast Only In Process Unspecified. EDMS 19:13 Head angio In Process Unspecified. EDMS 19:16 Primary Nurse role handed off by Asa Ruano, RN as6 19:35 Mey Bowling is Primary Nurse. cp4 20:25 Provided Education on: back pain and vertigo. cp4 20:25 No provider procedures requiring assistance completed. intact, bleeding controlled, No cp4 redness/swelling at site. Pressure dressing applied. Administered Medications: 18:00 Drug: Meclizine PO 25 mg PO once Route: PO; bp 19:36 Follow up: Response: No adverse reaction cp4 18:10 Drug: NS 0.9% IV 1000 ml IV at 1000 ml once Route: IV; Rate: 1000 ml; Site: right bp antecubital; 19:36 Follow up: Response: No adverse reaction; IV Status: Completed infusion; IV Intake: cp4 1000ml 18:10 Drug: Ondansetron IVP 4 mg IVP once; over 2 minutes Route: IVP; Site: right antecubital;bp 19:35 Follow up: Response: No adverse reaction cp4 Medication: 20:26 VIS not applicable for this client. cp4 Intake: 19:36 IV: 1000ml; Total: 1000ml. cp4 Outcome: 19:59 Discharge ordered by . rt 20:25 Discharged to home ambulatory, cp4 20:25 Condition: stable 20:25 Discharge instructions given to patient, Instructed on discharge instructions, follow up and referral plans. medication usage, Demonstrated understanding of instructions, follow-up care, medications, Prescriptions given X 1, 20:26 Patient left the ED. cp4 Signatures: Dispatcher [employer] EDMS John Espinoza MD MD rn Peltier, Brian, RN RN bp Lance Clifton RN RN as6 Issac Wilson MD MD rt Francheska Baires PAS PAS ts1 Salome Macias RN RN cm10 Mey Bowling cp4
[2024-04-23 20:54] VITALS: BP 117/70; TEMP 97.4; O2SAT 98
== END 2024-04-23 20:26 | disposition home or self-care (01) ==
LOC: ER 17:14
DX: H81.10 Benign paroxysmal vertigo, unspecified ear (principal); M54.50 Low back pain, unspecified
CPT/HCPCS: 85025; 80048; 36415; 80076; 81003; 83690; 70450; 70496; 70498; 74177; Q9967; J8597; J2405; J7030; 96361; 96374; 99284

== ENCOUNTER 2024-10-17 09:33 | Day surgery (SDC) | payer OTHER ==
[2024-10-17 10:07] LABS: Absolute Eosinophils 0.1 K/uL (0-0.5); Absolute Lymphocytes (CBC) 2.1 K/uL (0.7-4.9); Absolute Monocytes 0.4 K/uL (0.1-1.3); Absolute Neutrophil 4.3 K/uL (1.8-8.0); Basophils % 0.4 % (0-1.3); Eosinophils % 0.9 % (0-4.4); Hematocrit 38.1 % (36.0-45.0); Hemoglobin 12.6 g/dL (12.0-15.0); Lymphocytes % 30.7 % (15.3-44.8); MCH 28.9 pg (27.0-35.0); MCHC 33.1 g/dL (32.0-36.0); MCV 87.2 fL (80-100); MPV 8.5 fL (7.6-11.3); Monocytes % 5.5 % (3.3-12.3); Neutrophils % 62.5 % (41.7-73.7); Nucleated Red Blood Cells % 0.1 % (0-0); Platelets 327 thou/uL (152-406); RBC Red Blood Cell Count 4.37 M/uL (3.86-4.86); Red Cell Distribution Width 12.6 % (12.1-15.2)
[2024-10-17 10:20] LABS: Anion Gap 8.2 mEq/L (5.0-15.0); Potassium 4.2 mEq/L (3.5-5.1)
[2024-10-17] MEDS: Ringers Lactate 1,000 ML IV ONE (10:55)
--- NOTE | 2024-10-17 11:23 | RAD REPORT ---
EXAMINATION: TWO VIEW CHEST XR CLINICAL INDICATION: Female, 59 years old. [facility] MAIN PREOP. Hypertension SDS ROOM 3 TECHNIQUE: 2 view radiographs of the chest were performed. COMPARISON: 05/09/2023 FINDINGS: The lungs are well inflated and clear. No pneumothorax or sizable effusion. The heart is normal in si ze. Mediastinal contours are unremarkable. IMPRESSION: No acute or significant abnormalities.
[2024-10-17] MEDS ORDERED: MIDAZOLAM HCL 2 MG/2 ML INJ ONE (11:32)
[2024-10-17] MEDS ORDERED: FENTANYL CITR 100 MCG/2 ML ONE (11:32)
[2024-10-17] MEDS ORDERED: propofoL 200 MG/20 ML VIAL IV ONE (11:32)
[2024-10-17] MEDS ORDERED: LIDOCAINE 1% MPF 5 ML VIAL ONE (11:32)
[2024-10-17] MEDS: CEFAZOLIN SODIUM 1 GM/VIAL ONE (11:55)
[2024-10-17] MEDS ORDERED: ONDANSETRON 4 MG/2 ML VIAL ONE (12:01)
[2024-10-17] MEDS: BUPIVACAINE 0.5% PF 10 ML VIAL ONE (12:10)
--- NOTE | 2024-10-17 12:22 | P.BOP ---
Preoperative diagnosis: tender scalp infected mass Postoperative diagnosis: same Primary procedure: Excisional biopsy tender scalp infected mass 3x3cm Estimated blood loss: <10cc Specimen: mass Findings: mass Anesthesia: General Complications: None Transferred to: Recovery Room Condition: Good
[2024-10-17] MEDS: HYDROMORPHONE HCL 1 MG/ML INJ ONE (12:50)
[2024-10-17] MEDS: CODEINE 30MG/APAP 300MG TAB ONE (13:26)
[2024-10-17] MEDS ORDERED: ONDANSETRON 4 MG (ODT) TAB ONE (14:43)
[2024-10-17] MEDS: ONDANSETRON 4 MG (ODT) TAB PO ONE (14:47)
[2024-10-17 15:17] VITALS: BP 119/48; TEMP 97.9; O2SAT 99
--- NOTE | 2024-10-17 23:41 | OP ---
Date of Procedure: 10/17/2024 Surgeon: Dave Macias MD Preoperative Diagnosis: Tender scalp infected mass. Postoperative Diagnosis: Tender scalp infected mass. Procedure: Excisional biopsy of tender scalp infected mass, 3 x 3 cm. Estimated Blood Loss: Less than 10 cc. Findings: Mass. Anesthesia: General plus local. Indications: This is a case of a 59-year-old patient with a tender erythematous mass in the scalp. She was started on antibiotics and scheduled for excision. The benefits, alternatives, and risks ful ly explained, which include, but not limited to infection, bleeding, damage to adjacent structures, a nesthesia complication, recurrence, alopecia, [place], and even . She also understands this may not relieve the symptoms. She might need more than one surgical intervention. She understood and signed a consent. Procedure In Detail: The patient was brought to the operating room, placed in supine position. Anes thesia was done without complication. The scalp area was prepped and draped in the usual sterile fas hion. The area of concern was marked by me and the patient in the holding room, so we prepped that a wong. After that, we proceeded to inject local anesthetic and do a wedge incision in that area. Inci mikel was carried down to galea. Mass was completely excised. Area was irrigated. Hemostasis obtain ed. Then, we proceeded to close this area with mattress sutures of 2-0 nylon interrupted multiple ti mes. The patient tolerated procedure well. No bleeding. The area was covered with sterile dressings. The patient was sent to recovery in stable condition. JERICA/PERRY Voice ID: [id number] Report ID: [id number]
--- NOTE | 2024-10-17 23:44 | DS ---
Date of Discharge: 10/17/2024 Diagnosis: Tender scalp infected mass. Procedure: Excisional biopsy of tender scalp infected mass, 3 x 3 cm. Condition: Stable. Disposition: Home. Activity: As tolerated. No heavy lifting. Discharge Instructions: Follow up in my office in 1 week. Call for appointment at [phone]. Keep a wong dry for 48 hours, then may shower. Clean the area normally and then put Neosporin or triple anti biotic ointment on it, and it is her choice if she wants to cover or not at least to go to sleep. JERICA/PERRY Voice ID: [id number] Report ID: [id number]
== END 2024-10-17 14:53 | disposition home or self-care (01) ==
LOC: OR 09:33
PROVIDERS: ATTEND Surgery
PROC: 0HB0XZZ Excision of Scalp Skin, External Approach (ICD-10-PCS; principal; 2024-10-17 11:41)
DX: L72.11 Pilar cyst (principal)
CPT/HCPCS: 87070; 85025; 80048; 36415; 87205 ×2; 88304; 87075; 71046; 11423; Q0162; J2704; J2003; J2250; J3010; J1171; J2405; J7120; J0690

== ENCOUNTER 2024-10-20 21:14 | Emergency (ER) | payer OTHER ==
--- OUTSIDE RECORDS SUMMARY | 2024-10-20 21:17 | XMS REPORT | Continuity of Care Document ---
Author Name Unknown Address [address] [facility]. [address] [place] [address] [facility] thconnect Address [address] [facility] [place] [address] Care Team Providers Care Trustee Of Estate Name Role Phone [facility] Care Physician Unavailable MICHAEL REHMAN Attending Clinician Unavailable LAB90 Attending Clinician Unavailable MORGAN RAZO Attending Clinician Unavailable Morgan Sun Attending Clinician Doctor Unassigned, [place]bald Attending Clinician U PADMINI Martines Attending Clinician Unavailable MORGAN RAZO Admitting Clinician Unavailable Payers Payer Name Policy Type Policy Number Effective Date Expirati on Date Source [employer] S [employer] RIVET TESTER 94 ON 9 [id number] 2023 00:00:00 Problems Condition Name Condition Details Condition Category Status Onset Date Resolution Date Last Treatment Date Treating Clinician Comments Source Other chest pain Other chest pain Disease Active 2023-10 00:00: 00 Cindy christianson Mild major depression Mild major depression Disease Active 2023-10 00:00: 00 Cindy Covarrubias - Externa l Well adult exam Well adult exam Disease Active 2023-10 00:00: 00 Cnidy Covarrubias - Jayroa sammy Dizziness Dizziness Disease Active 2023-10 00:00: 00 Cindy Urbanold - Externa l Overweight (BMI 25.0-29.9) Overweight (BMI 25.0-29.9) Disease Active Cindy Covarrubias - Externa l No known active problems No known active problems Disease [facility] Allergies, Adverse Reactions, Alerts Allergy Name Allergy Type Status Severity Reaction(s) Onset Date Inactive Date Treating Clinician Comments Source NO KNOWN ALLERGIE S Drug Class Active [facility] Social History Social Habit Start Date Stop Date Quantity Comments Source Sexual orientation Kane hurtado Marci - External ASSERTION Not Cindy Covarrubias - External Exposure to SARS-CoV-2 (event) Not sure [facility] Alcoholic beverage intake 2024-10-03 00:00:00 2024-10-03 00:00:00 Lifetime non-drinker (finding) Cindy Covarrubias - External Tobacco use and exposure 2024-08-04 00:00:00 2024-08-04 00:00:00 Smokeless tobacco non-user Cindy Covarrubias - External History of Social function 2024-08-04 00:00:00 2024-08-04 00:00:00 Cindy Covarrubias - External Education 2024-08-04 00:00:00 2024-08-04 00:00:00 6 Cindy Covarrubias - External Sex 2022-11-12 21:21:29 2022-11-12 21:21:29 Female (finding) Cindy Covarrubias - External Alcohol intake 2021-12-26 00:00:00 2021-12-26 00:00:00 Current non-drinker of alcohol (finding) [facility] Sex assigned at 1965 00:00:00 1965 00:00:00 Cindy Covarrubias - External Smoking Status Start Date Stop Date Source Never smoked tobacco Cindy Covarrubias - External Medications Ordered Medication Name Filled Medication Name Start Date Stop Date Current Medication? Ordering Clinician Indication Dosage Frequency Signature (SIG) Comments Components Source Tobramycin- dexAMETHaso ne (TOBRADEX) 0.3-0.1 % ophthalmic Suspension 2023-10 00:00: 00 10-03 00:00 :[address] 1 DROP INTO LEFT EYE ONLY 4 TIMES DAILY FOR 7 DAYS Cindy christianson Duloxetine HCl [address] Particles 2023-10 00:00: 00 Yes [id number] 20mg QD Take 1 capsule (20 mg total) by mouth daily. Cindy christianson FLUTICASONE PROPIONATE, NASAL, (Flonase Allergy Relief) 50 MCG/ACT nasal Suspension 11-27 00:00: 00 10-03 00:00 :00 No Cindy christianson Meclizine HCl 12.5 MG oral Tablet 11-27 00:00: 00 09-19 00:00 :00 No Cindy christianson butalbital- acetaminoph en-caff 50-325-40 mg tablet 12-26 00:00: 00 Yes [id number] 1{tbl} Take 1 tablet by mouth every 4 (four) hours as needed for Pain (scale 4-6). [facility] HYDROcodone -acetaminop hen (NORCO 5) 5-325 mg tablet 07-01 00:00: 00 Yes 1{tbl} Take 1 Tab by mouth every 4 (four) hours as needed for Pain. [facility] Vital Signs Vital Name Observation Time Observation Value Comments S ource BMI 2024-10-03 16:04:00 27.07 kg/m2 Bethany Covarrubias - External Oxygen saturation in Arterial blood by Pulse oximetry 2024-10-03 16:04:00 97 /min Cindy abreu - External Systolic blood pressure 2024-10-03 16:04:00 122 mm[Hg] Cindy abreu - External Diastolic blood pressure 2024-10-03 16:04:00 70 mm[Hg] Cindy abreu - External Heart rate 2024-10-03 16:04:00 72 /min Martín Covarrubias - External Body temperature 2024-10-03 16:04:00 36.78 Naomy Cindy Seybold - External Respiratory rate 2024-10-03 16:04:00 16 /min Cindy Seybold - External Body height 2024-10-03 16:04:00 157.5 cm Bethany ey Seybold - External Body weight 2024-10-03 16:04:00 67.132 kg Bethany ey Seybold - External Systolic blood pressure 2024-09-19 19:43:00 120 mm[Hg] Cindy Seybo ld - External Diastolic blood pressure 2024-09-19 19:43:00 70 mm[Hg] Cindy Seybo ld - External Heart rate 2024-09-19 19:43:00 79 /min Kelse y Seybold - External Body temperature 2024-09-19 19:43:00 36.61 Naomy Cindy Seybold - External Respiratory rate 2024-09-19 19:43:00 15 /min Cindy Seybold - External Body height 2024-09-19 19:43:00 157.5 cm Bethany ey Seybold - External Body weight 2024-09-19 19:43:00 65.772 kg Bethany ey Seybold - External BMI 2024-09-19 19:43:00 26.52 kg/m2 Bethany ey Seybold - External Systolic blood pressure 2024-08-04 14:20:00 119 mm[Hg] Cindy Seybo ld - External Diastolic blood pressure 2024-08-04 14:20:00 72 mm[Hg] Cindy Seybo ld - External Heart rate 2024-08-04 14:20:00 72 /min Kelse y Seybold - External Body temperature 2024-08-04 14:20:00 36.5 Naomy Cindy Seybold - External Respiratory rate 2024-08-04 14:20:00 15 /min Cindy Seybold - External Body height 2024-08-04 14:20:00 157.5 cm Bethany ey Seybold - External Body weight 2024-08-04 14:20:00 66.679 kg Bethany ey Seybold - External BMI 2024-08-04 14:20:00 26.89 kg/m2 Bethany ey Seybold - External Oxygen saturation in Arterial blood by Pulse oximetry 2024-08-04 14:20:00 97 /min Cindy Tesfaye ld - External Systolic blood pressure 2021-12-26 22:09:00 139 mm[Hg] [facility] Diastolic blood pressure 2021-12-26 22:09:00 75 mm[Hg] [facility] Heart rate 2021-12-26 22:09:00 80 /min [facility] Body temperature 2021-12-26 22:09:00 36.83 Naomy [facility] Respiratory rate 2021-12-26 22:09:00 18 /min [facility] Body weight 2021-12-26 22:09:00 66.679 kg [facility] BMI 2021-12-26 22:09:00 30.72 kg/m2 [facility] Oxygen saturation in Arterial blood by Pulse oximetry 2021-12-26 22:09:00 98 /min [facility] Procedures Procedure Date / Time Performed Performing Clinicia n Source XR NASAL BONES 2021-12-26 22:43:57 Razo, Morgan R [facility] CONSENT/REFUSAL FOR DIAGNOSIS AND TREATMENT 2021-12-26 22:00:45 Doctor Unassigned, Archbald [facility] Encounters Start Date/Time End Date/Time Encounter Type Admission Type Attending Clinicians Care Facility Care Department Encounter ID Source 2024-11-11 09:15:00 2024-11-11 09:15:00 Outpatient MICHAEL REHMAN [id number] Cindy Covarrubias 2024-10-11 00:00:00 2024-10-11 00:00:00 Outpatient MICHAEL REHMAN [id number] Cindy Covarrubias 2024-10-04 00:00:00 2024-10-04 00:00:00 Outpatient MICHAEL REHMAN [id number] Cindy Covarrubias 2024-10-03 10:30:00 2024-10-03 10:30:00 Outpatient MICHAEL REHMAN [id number] Cindy Covarrubias 2024-09-19 14:00:00 2024-09-19 14:00:00 Outpatient MICHAEL REHMAN [id number] Cindy Covarrubias 2024-08-04 10:15:00 2024-08-04 10:15:00 Outpatient LAB90 CINDY WILSON [id number] Cindy Covarrubias 2024-08-04 09:30:00 2024-08-04 09:30:00 Outpatient MICHAEL REHMAN [id number] Cindy Covarrubias 2024-02-26 14:04:10 2024-02-26 14:04:10 Outpatient SFA SFA [id number] [facility] 2024-02-12 13:19:12 2024-02-12 13:19:12 Outpatient SFA SFA [id number] [facility] 2024-01-25 10:39:28 2024-01-25 10:39:28 Outpatient SFA SFA [id number] [facility] 2023-11-27 07:57:03 2023-11-27 07:57:03 Outpatient SFA SFA [id number] [facility] 2023-05-15 10:35:41 2023-05-15 10:35:41 Outpatient SFA SFA [id number] [facility] 2023-05-01 10:47:58 2023-05-01 10:47:58 Outpatient SFA SFA [id number] [facility] 2023-04-17 11:36:29 2023-04-17 11:36:29 Outpatient SFA SFA [id number] [facility] 2023-03-13 14:14:07 2023-03-13 14:14:07 Outpatient SFA SFA [id number] [facility] 2023-01-26 13:57:02 2023-01-26 13:57:02 Outpatient SFA SFA [id number] [facility] 2022-09-15 14:43:29 2022-09-15 14:43:29 Outpatient SFA SFA [id number] [facility] 2021-12-26 16:09:00 2021-12-26 17:22:00 Emergency X MORGAN RAZO [facility] [id number] [facility] 2021-12-26 16:09:00 2021-12-26 17:22:00 Emergency Morgan Razo [facility] [id number] [facility] 2021-12-26 00:00:00 2021-12-26 00:00:00 Orders Only Doctor Unassigned, Archbald [facility] [id number] [facility] 2021-02-12 11:15:00 2021-02-12 11:13:06 Outpatient PADMINI LUIS [facility] [id number] [facility] 2021-01-22 11:20:00 2021-01-22 11:12:01 Outpatient PADMINI LUIS [facility] [id number] [facility] Results Test Description Test Time Test Comments Results Result Co mments Source CULTURE, URINE 2023-04-19 12:38:09 SPECIMEN NUMBER: [id number] CULTURE, URINE SPECIMEN NUMBER: [id number] SOURCE: URINE REPORT STATUS: FINAL FINAL REPORT: 04/19/2023 <10,000 CFU/ML UROGENITAL CHIRAG PRESENT NO COMMON PATHOGENS UNLESS OTHERWISE INDICATED, ALL TESTING PERFORMED AT [facility] [address] [place] [address] DATA CAPTURE SPECIALIST: SID SRINIVASAN M.D. CLIA NUMBER [id number] [place]. [id number] CULTURE, URINE 2023-03-15 14:24:02 SPECIMEN NUMBER: [id number] CULTURE, URINE SPECIMEN NUMBER: [id number] SPECIMEN COMMENT: URINE SOURCE: URINE REPORT STATUS: FINAL FINAL REPORT: 03/15/2023 NO GROWTH AFTER 36 HOURS INCUBATION UNLESS OTHERWISE INDICATED, ALL TESTING PERFORMED AT [facility] [address] [place] [address] DATA CAPTURE SPECIALIST: SID SRINIVASAN M.D. CLIA NUMBER [id number] [place]. [id number] VITAMIN [id number] 05:38:10* Test Item Value Reference Range Interpretation Comme nts VITAMIN B-12 (test code = 2840) 461 PG/ML 200-950 UNLESS OTHERWISE INDICATED, ALL TESTING PERFORMED AT [facility] [address] [place] [address] DATA CAPTURE SPECIALIST: SID SRINIVASAN M.D. CLIA NUMBER [id number] [place]. [id number] CBC W/AUTO DIFF WITH [id number] 03:36:08* Test Item Value Reference Range Interpretation [...] 0.00-0.10 ABS NUCLEATED RBCS (test code = 47320) 0.00 K/UL 0.00-0.11 PAP TEST, [id number] 09:35:37* Test Item Value Reference Range Interpretation Comme nts SOURCE: (test code = 8001) Cervical SLIDES: (test code = 8011) 1 LMP: (test code = 8021) SEE NOTE POST MENOPAUSAL SPECIMEN ADEQUACY: (test code = 32806) (NOTE) Satisfactory for evaluation. Endocervical cells/transformation zone component present. INTERPRETATION: (test code = 96088) NILM/NO EPITH. ABNORMALITY;SEE BELOW -- ---- NEGATIVE FOR INTRAEPITHELIAL LESION OR MALIGNANCY (NILM) ------- OTHER COMMENTS: (test code = 8081) (NOTE) Atrophic changes present.Partially obscuring inflammation is present. HEALTH POLICY MANAGER : (test code = 8101) Sujey Graham TECHNOLOGIST: (test code = 8111) Shirin Cortez,[facility](ASCP) CT(IAC) LOCATION: (test code = 27633) (NOTE) Specimens proces sed and interpreted at [facility], [address] [place] [address], , CLIA: [id number] CPT: (test code = 8140) (NOTE) [address] is a screening test with an inherent, but low probability of error. Your patient should be reminded to consult you immediately if she experiences any suspicious signs or symptoms, regardless of her Pap test result. An alternate report format containing images or consolidated prior Pap history is available as applicable. UNLESS OTHERWISE INDICATED, ALL TESTING PERFORMED [facility] [address] [place] [address] DATA CAPTURE SPECIALIST: JEY KAISER M.D. CLIA NUMBER [id number] [place]. [id number]
[2024-10-20] MEDS ORDERED: BISACODYL 10 MG RECTAL SUPP ONE (22:21)
[2024-10-20] MEDS ORDERED: FAMOTIDINE 20 MG/2 ML VIAL IV ONE (22:21)
[2024-10-20] MEDS ORDERED: ONDANSETRON 4 MG/2 ML VIAL ONE (22:21)
[2024-10-20] MEDS ORDERED: NA CHLORIDE 0.9% 1,000 ML ONE (22:21)
[2024-10-20] MEDS ORDERED: LACTULOSE 20 GM/30 ML UCUP ONE (22:22)
[2024-10-20 22:24] LABS: Absolute Basophils 0.1 K/uL (0-0.5); Absolute Lymphocytes (CBC) 1.8 K/uL (0.7-4.9); Absolute Monocytes 0.6 K/uL (0.1-1.3); Absolute Neutrophil 9.6 K/uL (1.8-8.0); Basophils % 0.5 % (0-1.3); Eosinophils % 0.3 % (0-4.4); Hematocrit 37.5 % (36.0-45.0); Hemoglobin 12.5 g/dL (12.0-15.0); Lymphocytes % 14.7 % (15.3-44.8); MCH 29.1 pg (27.0-35.0); MCHC 33.3 g/dL (32.0-36.0); MCV 87.3 fL (80-100); MPV 8.7 fL (7.6-11.3); Monocytes % 5.1 % (3.3-12.3); Neutrophils % 79.4 % (41.7-73.7); Nucleated Red Blood Cells % 0.1 % (0-0); Platelets 333 thou/uL (152-406); RBC Red Blood Cell Count 4.29 M/uL (3.86-4.86); Red Cell Distribution Width 12.4 % (12.1-15.2)
[2024-10-20 22:38] LABS: Specific Gravity 1.017 (1.005-1.030); Sqamous Epithelial <5 /HPF (None Seen); Urine Bacteria <20 /HPF (<20); Urine Bilirubin NEGATIVE (Negative); Urine Blood 1+ (Negative); Urine Clarity Extremely Turbid (Clear); Urine Color Light-Yellow (Yellow); Urine Crystals Unidentified Few /HPF (None Seen); Urine Culture Reflex Order REFLEXED; Urine Glucose NEGATIVE (Negative); Urine Ketones NEGATIVE (Negative); Urine Microscopic Reflex YN ORDER UMIC; Urine Mucus Slight /HPF (None Seen); Urine Nitrite NEGATIVE (Negative); Urine Protein NEGATIVE (Negative); Urine Urobilinogen Normal (Normal); Urine WBC Clump Rare /HPF (None Seen); Urine Yeast (Budding) Trace /HPF (None Seen); Urine pH 6.5 (5.0-7.0)
[2024-10-20 22:42] LABS: Albumin 3.6 g/dL (3.4-5.0); Anion Gap 10.3 mEq/L (5.0-15.0); Bilirubin Total 0.3 mg/dL (0.2-1.0); Globulin 3.6 g/dL (2.3-3.5); Protein, Total 7.2 g/dL (6.4-8.2)
[2024-10-20 22:44] LABS: Potassium 4.3 mEq/L (3.5-5.1)
--- NOTE | 2024-10-21 03:17 | EDPHYS ---
Physician Documentation [facility] Name: Dayanara Plummer Age: 59 yrs Sex: Female : 1965 Arrival Date: 10/20/2024 Time: 21:14 Bed 15 Private MD: Tony Malcolm ED Physician Nick Coates HPI: 10/20 22:05 This 59 yrs old Female presents to ER via Wheelchair with complaints of cp Abdominal Pain, Weakness, Headache. 22:05 The patient presents with abdominal pain that is diffuse, constipation with last bowel cp movement 4 days ago. Associated signs and symptoms: Pertinent positives: headache, nausea, weakness. Daughter translating and reports patient had scalp cyst removal surgery this past Thursday here at [email or web address] Historical: - Allergies: 21:30 No Known Allergies; cm10 - Home Meds: 21:30 None [Active]; cm10 - PMHx: 21:30 None; cm10 - PSHx: 21:30 Cholecystectomy; cm10 - Immunization history:: Adult Immunizations up to date. - Infectious Disease History:: Denies. - Social history:: Smoking status: Patient denies any tobacco usage or history of. ROS: 22:10 Constitutional: Positive for poor PO intake, Negative for body aches, chills, fever, cp 22:10 Eyes: Negative for injury, pain, redness, and discharge, cp 22:10 ENT: Negative for drainage from ear(s), ear pain, sore throat, difficulty swallowing, difficulty handling secretions, 22:10 Cardiovascular: Negative for chest pain, palpitations, 22:10 Respiratory: Negative for cough, shortness of breath, wheezing, 22:10 Abdomen/GI: Positive for abdominal pain, nausea, constipation, Negative for vomiting, diarrhea, 22:10 : Negative for urinary symptoms, 22:10 Neuro: Positive for headache, weakness, Negative for altered mental status, 22:10 All other systems are negative, Exam: 10/21 03:19 Constitutional: This is a well developed, well nourished patient who is awake, alert, sp4 and in no acute distress. Head/Face: Normocephalic, atraumatic. Eyes: Pupils equal round and reactive to light, extra-ocular motions intact. Lids and lashes normal. Conjunctiva and sclera are not injected. Cornea within normal limits. Periorbital areas with no swelling, redness, or edema. ENT: Nares patent. No nasal discharge, no septal abnormalities noted. Tympanic membranes are normal and external auditory canals are clear. Oropharynx with no redness, swelling, or masses, exudates, or evidence of obstruction, uvula midline. Mucous membranes moist. Neck: Trachea midline, no thyromegaly or masses palpated, and no cervical lymphadenopathy. Supple, full range of motion without nuchal rigidity, or vertebral point tenderness. Chest/axilla: Normal chest wall appearance and motion. Nontender with no deformity. No lesions are appreciated. Cardiovascular: Regular rate and rhythm with a normal S1 and S2. No gallops, murmurs, or rubs. Normal PMI, no JVD. No pulse deficits. Respiratory: Lungs have equal breath sounds bilaterally, clear to auscultation and percussion. No rales, rhonchi or wheezes noted. No increased work of breathing, no retractions or nasal flaring. Abdomen/GI: Soft, with normal bowel sounds. No distension or tympany. No guarding or rebound. No evidence of tenderness throughout. Back: No spinal tenderness. No costovertebral tenderness. Skin: Warm, dry with normal turgor. Normal color with no rashes, no lesions, and no evidence of cellulitis. MS/ Extremity: Pulses equal, no cyanosis. Neurovascular intact. Full, normal range of motion. Neuro: Awake and alert, GCS 15, oriented to person, place, time, and situation. Cranial nerves II-XII grossly intact. Motor strength 5/5 in all extremities. Sensory grossly intact. Psych: Awake, alert, with orientation to person, place and time. Behavior, mood, and affect are within normal limits Vital Signs: 10/20 21:29 BP 141 / 84; Pulse 110; Resp 18; Temp 98.5(TE); Pulse Ox 94% on R/A; Weight 65.77 kg; cm10 Pain 1010; 21:55 BP 123 / 68; Pulse 78; Resp 20; Temp 98.1; Pulse Ox 100% ; kj2 23:00 BP 126 / 71; Pulse 100; Resp 18; Pulse Ox 100% ; kj2 10/21 00:00 BP 132 / 68; Pulse 99; Resp 18; Pulse Ox 100% ; kj2 01:24 BP 130 / 69; Pulse 98; Resp 18; Pulse Ox 94% on R/A; kj2 02:30 BP 128 / 68; Pulse 90; Resp 18; Pulse Ox 100% on R/A; kj2 03:31 BP 130 / 70; Pulse 88; Resp 18; Pulse Ox 100% on R/A; kj2 10/20 21:29 Pain Scale: Adult cm10 Peridot Coma Score: 03:19 Eye Response: spontaneous(4). Motor Response: obeys commands(6). Verbal Response: sp4 oriented(5). Total: 15. MDM: 10/20 21:32 Medical Screening Exam initiated cp 23:00 Differential diagnosis: bowel obstruction, non-specific abd pain, Pyelonephritis, cp Ureterolithiasis, urinary tract infection, constipation, ileus. 10/21 03:15 ED course: EXAM: CTAbdomen and Pelvis With Intravenous Contrast CLINICAL HISTORY: Abd sp4 pain, constipation. TECHNIQUE: Axial computed tomography images of the abdomen and pelvis with intravenous contrast. Sagittal and coronal reformatted images were created and reviewed. This CT exam was performed using one or more of the following dose reduction techniques: automated exposure control, adjustment of the mA and/or kV according to patient size, and/or use of iterative reconstruction technique. COMPARISON: CTAbdomen Pelvis 04/23/2024. FINDINGS: Lung bases: Unremarkable. No mass. No consolidation. ABDOMEN: Liver: Unremarkable. No mass. Gallbladder and bile ducts: There has been a cholecystectomy. No ductal dilation. Pancreas: Unremarkable. No mass. No ductal dilation. Spleen: Unremarkable. No splenomegaly. Adrenals: Unremarkable. No mass. Kidneys and ureters: Normal renal cortical enhancement. No calculi. No hydronephrosis. Stomach and bowel: Mildly distended predominantly fluid-filled large bowel with most pronounced distention of the level of the cecum. Fecal loading in the rectosigmoid colon. No small bowel dilation. No mucosal thickening. PELVIS: Appendix: Normal caliber appendix. No findings to suggest acute appendicitis. Bladder: Unremarkable. No mass. Reproductive: Unremarkable as visualized. ABDOMEN and PELVIS: Intraperitoneal space: Unremarkable. No free air. No significant fluid collection. Bones/joints: Multilevel spondylosis. No acute fracture. 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 No dislocation. Soft tissues: Unremarkable. Vasculature: Unremarkable. No abdominal aortic aneurysm. Lymph nodes: Unremarkable. No enlarged lymph nodes. IMPRESSION: 1. Mildly distended predominantly fluid-filled large bowel without definite obstruction. Fecal loading in the rectosigmoid colon with suspected impaction. 2. Other findings as above. Electronically signed by: Juan Antonio Tello MD 10/21/2024 03:09 AM SENIOR FORMULATION SCIENTIST. 03:19 Data reviewed: vital signs, nurses notes, old medical records, lab test result(s), sp4 radiologic studies, CT scan. Consideration of Admission/Observation Escalation of care including admission/observation considered. ED course: EXAM: CT Head Without Intravenous Contrast CLINICAL HISTORY: Headache. TECHNIQUE: Axial computed tomography images of the head/brain without intravenous contrast. Sagittal and coronal reformatted images were created and reviewed. This CT exam was performed using one or more of the following dose reduction techniques: automated exposure control, adjustment of the mA and/or kV according to patient size, and/or use of iterative reconstruction technique. COMPARISON: CT Head 04/23/2024. FINDINGS: Brain: Unremarkable. No hemorrhage. No significant white matter disease. No edema. Ventricles: Unremarkable. No ventriculomegaly. Bones/joints: Unremarkable. No acute fracture. Soft tissues: Unremarkable. Sinuses: Unremarkable as visualized. No acute sinusitis. Mastoid air cells: Unremarkable as visualized. No mastoid effusion. IMPRESSION: No acute intracranial or extra-axial abnormality. ED course: Patient has had multiple large bowel movements and her pain has resolved. Patient requested departure from ER. Patient stable for discharge home with p.o. as needed lactulose. 10/20 22:05 Order name: CBC with Diff; Complete Time: 23:22 cp 10/20 23:22 Interpretation: Normal except: WBC 12.10; DUKE% 79.4; LYM% 14.7; NEUT A 9.6. cp 10/20 22:05 Order name: CMP; Complete Time: 23:22 cp 10/20 23:23 Interpretation: Normal except: GLUC 126; GLOB 3.6; A/G 1.0. cp 10/20 22:05 Order name: Lipase; Complete Time: 23:22 cp 10/20 22:05 Order name: Urinalysis w/ reflexes; Complete Time: 23:22 cp 10/20 23:24 Interpretation: Normal except: [facility] Extremely Turbid; UBLD 1+; UESTR 500; UWBC 10-20; cp URBC 5-10; BYST Trace. 10/20 22:41 Order name: Urine Culture EDMS 10/20 22:05 Order name: CT Head Brain wo Cont cp 10/20 22:05 Order name: CT Abd/Pelvis - PO and IV Contrast: please give oral contrast cp 10/20 22:05 Order name: IV Saline Lock; Complete Time: 22:20 cp 10/20 22:05 Order name: Labs collected and sent; Complete Time: 22:20 cp Administered Medications: 10/20 22:40 Drug: Ondansetron IVP 4 mg IVP once; over 2 minutes Route: IVP; Site: right antecubital;kj2 10/21 03:35 Follow up: Response: No adverse reaction kj2 10/20 22:44 Drug: Famotidine IVP 20 mg IVP once; dilute with 10 mL 0.9% NaCl; give over 2 minutes kj2 Route: IVP; Site: right antecubital; 10/21 03:35 Follow up: Response: No adverse reaction kj2 10/20 22:44 Drug: Lactulose PO 30 grams 45 ml PO once Volume: 45 ml; Route: PO; kj2 10/21 03:35 Follow up: Response: No adverse reaction 2 10/20 22:44 Drug: Dulcolax DC Suppository 10 mg DC once Route: DC; kj2 10/21 03:35 Follow up: Response: No adverse reaction 2 10/20 22:45 Drug: NS 0.9% IV 1000 ml IV at 1 bolus Per protocol; to be given as a bolus over 60 kj2 minutes Route: IV; Rate: 1 bolus; Site: right antecubital; 10/21 03:36 Follow up: Response: No adverse reaction kj2 03:37 Follow up: IV Status: Completed infusion; IV Intake: 1000ml kj2 Disposition: 03:15 Co-signature as Attending Physician, Nick Coates MD I agree with the assessment sp4 and plan of care. I reviewed the patient's care provided by Advanced Practice Provider \T\ agree w/ the diagnosis \T\ care plan. I personally saw the pt \T\ performed a substantive portion of the visit, incldng all aspects of the (History/Exam/Medical Decision Making). Disposition Summary: 10/21/24 03:16 Discharge Ordered Notes: Location: Home sp4 Problem: new sp4 Symptoms: have improved sp4 Condition: Stable sp4 Diagnosis - Slow transit constipation sp4 - Postprocedural constipation sp4 Followup: sp4 - With: Tony Malcolm DO - When: 7 - 10 days - Reason: Recheck today's complaints Discharge Instructions: - Discharge Summary Sheet sp4 - Constipation, Adult, [id number] sp4 Forms: - Patient Portal Instructions sp4 Prescriptions: - lactulose 10 gram/15 mL Oral solution - take 15 milliliter ORAL route once daily PRN constipation; 120 milliliter; sp4 Refills: 0, Product Selection Permitted Signatures: Dispatcher [employer] EDMS Alden Tejeda PA PA cp Potepalov, Sergey, MD MD sp4 Salome Macias RN RN cm10 Marie Buck RN RN kj2 Corrections: (The following items were deleted from the chart) 01:25 01:15 This 59 yrs old Female presents to ER via Wheelchair with complaints of cp Abdominal Pain, Weakness, Headache. sp4
--- NOTE | 2024-10-21 03:17 | ER ---
Nurse's Notes [facility] Name: Dayanara Plummer Age: 59 yrs Sex: Female : 1965 Arrival Date: 10/20/2024 Time: 21:14 Bed 15 Private MD: Tony Malcolm Diagnosis: Slow transit constipation;Postprocedural constipation Presentation: 10/20 21:29 Chief complaint: Patient states: Had surgery on Thursday to remove a cyst from her head cm10 and has not had a BM since Thursday. pt reports abdominal pain and generalized body aches. Coronavirus screen: Client denies travel out of the [place] in the last 14 days. Ebola Screen: Patient denies travel to an Ebola-affected area in the 21 days before illness onset. No symptoms or risks identified at this time. Initial Sepsis Screen: Does the patient meet any 2 criteria? HR > 90 bpm. Does the patient have a suspected source of infection? No. Patient's initial sepsis screen is negative. Risk Assessment: Do you want to hurt yourself or someone else? Patient reports no desire to harm self or others. Onset of symptoms was October 20, 2024. 21:29 Method Of Arrival: Wheelchair cm10 21:29 Acuity: YANET 3 cm10 Triage Assessment: 21:30 General: Appears in no apparent distress. uncomfortable, Behavior is calm, cooperative. cm10 Neuro: No deficits noted. Level of Consciousness is awake, alert, obeys commands, Oriented to person, place, time, situation, Appropriate for age. Respiratory: No deficits noted. Airway is patent Respiratory effort is even, unlabored, Respiratory pattern is regular, symmetrical. Historical: - Allergies: 21:30 No Known Allergies; cm10 - Home Meds: 21:30 None [Active]; cm10 - PMHx: 21:30 None; cm10 - PSHx: 21:30 Cholecystectomy; cm10 - Immunization history:: Adult Immunizations up to date. - Infectious Disease History:: Denies. - Social history:: Smoking status: Patient denies any tobacco usage or history of. Screenin:56 [facility] ED Fall Risk Assessment (Adult) History of falling in the last 3 months, kj2 including since admission No falls in past 3 months (0 pts) Confusion or Disorientation No (0 pts) Intoxicated or Sedated No (0 pts) Impaired Gait No (0 pts) Mobility Assist Device Used No (0 pt) Altered Elimination No (0 pt) Score/Fall Risk Level 0 - 2 = Low Risk Maintained a safe environment, Hourly rounding (assess needs \T\ fall precautionary measures) done. Abuse screen: Denies threats or abuse. Denies injuries from another. Nutritional screening: No deficits noted. Tuberculosis screening: No symptoms or risk factors identified. Assessment: 21:53 General: Appears in no apparent distress. uncomfortable, Behavior is calm, cooperative. kj2 Pain: Complains of pain in stomach Pain currently is 7 out of 10 on a pain scale. Neuro: Level of Consciousness is awake, alert, Oriented to person, place, time, situation. Cardiovascular: Patient's skin is warm and dry. Respiratory: Airway is patent Respiratory effort is unlabored. GI: Abdomen is tender to palpation X 4 quads. Reports constipation. 23:00 Reassessment: Patient appears in no apparent distress at this time. Patient and/or kj2 family updated on plan of care and expected duration. Pain level reassessed. Patient is alert, oriented x 3, equal unlabored respirations, skin warm/dry/pink. 10/21 00:00 Reassessment: Patient appears in no apparent distress at this time. Patient and/or kj2 family updated on plan of care and expected duration. Pain level reassessed. Patient is alert, oriented x 3, equal unlabored respirations, skin warm/dry/pink. 01:23 Reassessment: Patient appears in no apparent distress at this time. Patient and/or kj2 family updated on plan of care and expected duration. Pain level reassessed. Patient is alert, oriented x 3, equal unlabored respirations, skin warm/dry/pink. 02:11 Reassessment: Patient appears in no apparent distress at this time. Patient and/or kj2 family updated on plan of care and expected duration. Pain level reassessed. Patient is alert, oriented x 3, equal unlabored respirations, skin warm/dry/pink. 03:10 Reassessment: Patient appears in no apparent distress at this time. Patient and/or kj2 family updated on plan of care and expected duration. Pain level reassessed. Patient is alert, oriented x 3, equal unlabored respirations, skin warm/dry/pink. Vital Signs: 10/20 21:29 BP 141 / 84; Pulse 110; Resp 18; Temp 98.5(TE); Pulse Ox 94% on R/A; Weight 65.77 kg; cm10 Pain 10/; 21:55 BP 123 / 68; Pulse 78; Resp 20; Temp 98.1; Pulse Ox 100% ; kj2 23:00 BP 126 / 71; Pulse 100; Resp 18; Pulse Ox 100% ; kj2 10/21 00:00 BP 132 / 68; Pulse 99; Resp 18; Pulse Ox 100% ; kj2 01:24 BP 130 / 69; Pulse 98; Resp 18; Pulse Ox 94% on R/A; kj2 02:30 BP 128 / 68; Pulse 90; Resp 18; Pulse Ox 100% on R/A; kj2 03:31 BP 130 / 70; Pulse 88; Resp 18; Pulse Ox 100% on R/A; kj2 10/20 21:29 Pain Scale: Adult cm10 [place] Coma Score: 03:19 Eye Response: spontaneous(4). Motor Response: obeys commands(6). Verbal Response: sp4 oriented(5). Total: 15. ED Course: 10/20 21:18 Patient arrived in ED. gm2 21:18 Tony Malcolm DO is Private Physician. gm2 21:30 Triage completed. cm10 21:30 Arm band placed on right wrist. Patient placed in waiting room. cm10 21:31 Alden Tejeda PA is PHCP. cp 21:31 Nick Coates MD is Attending Physician. cp 21:53 Marie Buck RN is Primary Nurse. kj2 21:57 Patient has correct armband on for positive identification. Bed in low position. Call kj2 light in reach. Adult w/ patient. Provided Education on: call light. 22:16 Inserted saline lock: 20 gauge in right antecubital area, using aseptic technique. sa1 Blood collected. Flushed with 10 mL NS. 22:20 Initial lab(s) drawn, by me, sent to lab. sa1 22:20 CBC with Diff Sent. sa1 22:20 CMP Sent. sa1 22:20 Lipase Sent. sa1 22:30 Urine collected: clean catch specimen, clear. sa1 22:30 Urinalysis w/ reflexes Sent. sa1 22:30 Lipase Sent. sa1 22:30 CMP Sent. sa1 10/21 00:29 Assisted to bathroom. kj2 00:47 Assisted to bathroom. kj2 01:31 CT Head Brain wo Cont In Process Unspecified. EDMS 01:32 CT Abd/Pelvis - PO and IV Contrast: please give oral contrast In Process Unspecified. EDMS 03:16 Tony Malcolm DO is Referral Physician. sp4 03:33 No provider procedures requiring assistance completed. IV discontinued, intact, kj2 bleeding controlled, No redness/swelling at site. Pressure dressing applied. Administered Medications: 10/20 22:40 Drug: Ondansetron IVP 4 mg IVP once; over 2 minutes Route: IVP; Site: right antecubital;kj2 10/21 03:35 Follow up: Response: No adverse reaction kj2 10/20 22:44 Drug: Famotidine IVP 20 mg IVP once; dilute with 10 mL 0.9% NaCl; give over 2 minutes kj2 Route: IVP; Site: right antecubital; 10/21 03:35 Follow up: Response: No adverse reaction kj2 10/20 22:44 Drug: Lactulose PO 30 grams 45 ml PO once Volume: 45 ml; Route: PO; kj2 10/21 03:35 Follow up: Response: No adverse reaction kj2 10/20 22:44 Drug: Dulcolax GA Suppository 10 mg GA once Route: GA; kj2 10/21 03:35 Follow up: Response: No adverse reaction 2 10/20 22:45 Drug: NS 0.9% IV 1000 ml IV at 1 bolus Per protocol; to be given as a bolus over 60 kj2 minutes Route: IV; Rate: 1 bolus; Site: right antecubital; 10/21 03:36 Follow up: Response: No adverse reaction kj2 03:37 Follow up: IV Status: Completed infusion; IV Intake: 1000ml kj2 Medication: 10/20 21:57 VIS not applicable for this client. kj2 Intake: 10/21 03:37 IV: 1000ml; Total: 1000ml. kj2 Outcome: 03:16 Discharge ordered by . sp4 03:34 Discharged to home ambulatory, with family, kj2 03:34 Condition: stable 03:34 Discharge instructions given to patient, Instructed on discharge instructions, follow up and referral plans. Demonstrated understanding of instructions, follow-up care, 03:44 Patient left the ED. kj2 Signatures: Dispatcher [employer] EDMS Alden Tejeda PA PA cp Potepalov, Sergey, MD MD sp4 Salome Macias RN RN cm10 Corin Beckett 2 Sultan Magda 1 Marie Buck RN RN kj2
--- NOTE | 2024-10-21 03:29 | RAD REPORT ---
EXAM: CT Head Without Intravenous Contrast CLINICAL HISTORY: Headache. TECHNIQUE: Axial computed tomography images of the head/brain without intravenous contrast. Sagittal and coron al reformatted images were created and reviewed. This CT exam was performed using one or more of the following dose reduction techniques: automated exposure control, adjustment of the mA and/or kV according to patient size, and/or use of iterative reconstruction technique. COMPARISON: CT Head 04/23/2024. FINDINGS: Brain: Unremarkable. No hemorrhage. No significant white matter disease. No edema. Ventricles: Unremarkable. No ventriculomegaly. Bones/joints: Unremarkable. No acute fracture. Soft tissues: Unremarkable. Sinuses: Unremarkable as visualized. No acute sinusitis. Mastoid air cells: Unremarkable as visualized. No mastoid effusion. IMPRESSION: No acute intracranial or extra-axial abnormality. Electronically signed by: Juan Antonio Tello MD 10/21/2024 03:13 AM [facility] Due to temporary technical issues with the PACS/[employer] reporting system, reports are being bjorn d by the in-house radiologist without review as a courtesy to ensure prompt reporting the interpreting radiologist is fully responsible for the content of the report. Transcribed Date/Time: 10/21/2024 3:29 AM
--- NOTE | 2024-10-21 03:29 | RAD REPORT ---
EXAM: CT Abdomen and Pelvis With Intravenous Contrast CLINICAL HISTORY: Abd pain, constipation. TECHNIQUE: Axial computed tomography images of the abdomen and pelvis with intravenous contrast. Sagittal and coronal reformatted images were created and reviewed. This CT exam was performed using one or more of the following dose reduction techniques: automated exposure control, adjustment of the mA a nd/or kV according to patient size, and/or use of iterative reconstruction technique. COMPARISON: CT Abdomen Pelvis 04/23/2024. FINDINGS: Lung bases: Unremarkable. No mass. No consolidation. ABDOMEN: Liver: Unremarkable. No mass. Gallbladder and bile ducts: There has been a cholecystectomy. No ductal dilation. Pancreas: Unremarkable. No mass. No ductal dilation. Spleen: Unremarkable. No splenomegaly. Adrenals: Unremarkable. No mass. Kidneys and ureters: Normal renal cortical enhancement. No calculi. No hydronephrosis. Stomach and bowel: Mildly distended predominantly fluid-filled large bowel with most pronounced dis tention of the level of the cecum. Fecal loading in the rectosigmoid colon. No small bowel dilation. No mucosal thickening. PELVIS: Appendix: Normal caliber appendix. No findings to suggest acute appendicitis. Bladder: Unremarkable. No mass. Reproductive: Unremarkable as visualized. ABDOMEN and PELVIS: Intraperitoneal space: Unremarkable. No free air. No significant fluid collection. Bones/joints: Multilevel spondylosis. No acute fracture. Chronic bilateral pars interarticulari s defects at L5 with associated grade 1 spondylolisthesis of L5 on S1. No dislocation. Soft tissues: Unremarkable. Vasculature: Unremarkable. No abdominal aortic aneurysm. Lymph nodes: Unremarkable. No enlarged lymph nodes. IMPRESSION: 1. Mildly distended predominantly fluid-filled large bowel without definite obstruction. Fecal load ing in the rectosigmoid colon with suspected impaction. 2. Other findings as above. Electronically signed by: Juan Antonio Tello MD 10/21/2024 03:09 AM [facility] Due to temporary technical issues with the PACS/[employer] reporting system, reports are being bjorn d by the in-house radiologist without review as a courtesy to ensure prompt reporting the interpreting radiologist is fully responsible for the content of the report. Transcribed Date/Time: 10/21/2024 3:28 AM
[2024-10-21 04:04] VITALS: TEMP 98.1
[2024-10-21 04:13] VITALS: O2SAT 100
[2024-10-21 04:15] VITALS: BP 130/70
== END 2024-10-21 03:44 | disposition home or self-care (01) ==
LOC: ER 21:14
DX: K59.01 Slow transit constipation (principal); K59.09 Other constipation; R51.9 Headache, unspecified; R53.1 Weakness; Z98.890 Other specified postprocedural states
CPT/HCPCS: 96361; 87088; 85025; 81001; 87086; 36415; 83690; 80053; 70450; 74177; 96375; 96374; 99284; Q9967; J2405; J7030

== ENCOUNTER 2024-10-24 16:51 | Emergency (ER) | payer OTHER ==
--- OUTSIDE RECORDS SUMMARY | 2024-10-24 16:53 | XMS REPORT | Continuity of Care Document ---
Author Name Unknown Address [address] [facility] [address] [place] [address] [facility] thconnect Address [address] [facility] [place] [address] Care Team Providers Care Pest Control Applicator Name Role Phone HILTON Cook [facility], [facility] Care Physician Unavailable MICHAEL REHMAN Attending Clinician Unavailable [facility]90 Attending Clinician Unavailable MORGAN RAZO Attending Clinician Unavailable Morgan Sun Attending Clinician [phone] Doctor Unassigned, [place] Attending Clinician U PADMINI Martines Attending Clinician Unavailable MORGAN RAZO Admitting Clinician Unavailable Payers Payer Name Policy Type Policy Number Effective Date Expirati on Date Source [employer] 94 [place] 9 [id number] 2023 00:00:00 Problems Condition Name Condition Details Condition Category Status Onset Date Resolution Date Last Treatment Date Treating Clinician Comments Source Other chest pain Other chest pain Disease Active 2023-10 00:00: 00 Cindy christianson Mild major depression Mild major depression Disease Active 2023-10 00:00: 00 Cindy Covarrubias - Externa l Well adult exam Well adult exam Disease Active 2023-10 00:00: 00 Cindy Covarrubias - Jayroa sammy Dizziness Dizziness Disease Active 2023-10 00:00: 00 Cindy Urbanold - Externa l Overweight (BMI 25.0-29.9) Overweight (BMI 25.0-29.9) Disease Active Cindy Covarrubias - Externa l No known active problems No known active problems Disease [facility] Allergies, Adverse Reactions, Alerts Allergy Name Allergy Type Status Severity Reaction(s) Onset Date Inactive Date Treating Clinician Comments Source NO KNOWN ALLERGIE S Drug Class Active [facility] Social History Social Habit Start Date Stop Date Quantity Comments Source Sexual orientation Kane hurtado Marci - External ASSERTION Not Cindy Covarrubias - External Exposure to SARS-CoV-2 (event) Not sure [facility] Alcoholic beverage intake 2024-10-03 00:00:00 2024-10-03 00:00:00 [...] 2021-12-26 00:00:00 Current non-drinker of alcohol (finding) [facility] Sex assigned at 1965 00:00:00 1965 00:00:00 [...] Cap DR Particles 2023-10 00:00: 00 Yes [id number] 20mg QD Take 1 capsule (20 mg total) by mouth daily. Cindy christianson FLUTICASONE PROPIONATE, NASAL, (Flonase Allergy Relief) 50 MCG/ACT nasal Suspension 11-27 00:00: 00 10-03 00:00 :00 No Cindy christianson Meclizine HCl 12.5 MG oral Tablet 11-27 00:00: 00 09-19 00:00 :00 No Cindy christianson butalbital- acetaminoph en-caff 50-325-40 mg tablet 12-26 00:00: 00 Yes [id number] 1{tbl} Take 1 tablet by mouth every 4 (four) hours as needed for Pain (scale 4-6). [facility] HYDROcodone -acetaminop hen (NORCO 5) 5-325 mg tablet 07-01 00:00: 00 Yes 1{tbl} Take 1 Tab by mouth every 4 (four) hours as needed for Pain. [facility] Vital Signs Vital Name Observation Time Observation Value Comments S kassy Systolic blood pressure 2024-10-03 16:04:00 122 mm[Hg] Cindy abreu - External Diastolic blood pressure 2024-10-03 16:04:00 70 mm[Hg] Cindy abreu - External Heart rate 2024-10-03 16:04:00 72 /min Martín Covarrubias - External Body temperature 2024-10-03 16:04:00 36.78 Naomy Cindy Covarrubias - External Respiratory rate 2024-10-03 16:04:00 16 /min Cindy Covarrubias - External Body height 2024-10-03 16:04:00 157.5 cm Bethany ey Seybold - External Body weight 2024-10-03 16:04:00 67.132 kg Bethany ey Seybold - External BMI 2024-10-03 16:04:00 27.07 kg/m2 Bethany ey Seybold - External Oxygen saturation in Arterial blood by Pulse oximetry 2024-10-03 16:04:00 97 /min Cindy Seybo ld - External Systolic blood pressure 2024-09-19 19:43:00 [...] 26.52 kg/m2 Bethany ey Seybold - External Oxygen saturation in Arterial blood by Pulse oximetry 2024-08-04 14:20:00 97 /min Cindy Seybo ld - External Systolic blood pressure 2024-08-04 14:20:00 [...] External BMI 2024-08-04 14:20:00 26.89 kg/m2 Bethany Covarrubias - External Systolic blood pressure 2021-12-26 22:09:00 139 mm[Hg] [facility] Diastolic blood pressure 2021-12-26 22:09:00 75 mm[Hg] [facility] Heart rate 2021-12-26 22:09:00 80 /min [facility] Body temperature 2021-12-26 22:09:00 36.83 Naomy [facility] Respiratory rate 2021-12-26 22:09:00 18 /min [facility] Body weight 2021-12-26 22:09:00 66.679 kg [facility] BMI 2021-12-26 22:09:00 30.72 kg/m2 [facility] Oxygen saturation in Arterial blood by Pulse oximetry 2021-12-26 22:09:00 98 /min [facility] Procedures Procedure Date / Time Performed Performing Clinicia n Source XR NASAL BONES 2021-12-26 22:43:57 Razo, Morgan R [facility] CONSENT/REFUSAL FOR DIAGNOSIS AND TREATMENT 2021-12-26 22:00:45 Doctor Unassigned, [place] [facility] Encounters Start Date/Time End Date/Time Encounter Type Admission Type Attending Clinicians Care Facility Care Department Encounter ID Source 2024-11-11 09:15:00 2024-11-11 09:15:00 Outpatient MICHAEL REHMAN [id number] Cindy Covarrubias 2024-10-11 00:00:00 2024-10-11 00:00:00 Outpatient MICHAEL REHMAN [id number] Cindy Covarrubias 2024-10-04 00:00:00 2024-10-04 00:00:00 Outpatient MICHAEL REHMAN [id number] Cindy Covarrubias 2024-10-03 10:30:00 2024-10-03 10:30:00 Outpatient MICHAEL REHMAN [id number] Cindy Covarrubias 2024-09-19 14:00:00 2024-09-19 14:00:00 Outpatient MICHAEL REHMAN [id number] Cindy Covarrubias 2024-08-04 10:15:00 2024-08-04 10:15:00 Outpatient LAB90 CINDY WILSON [id number] Cindy Covarrubias 2024-08-04 09:30:00 2024-08-04 09:30:00 Outpatient MICHAEL REHMAN [id number] Cindy Covarrubias 2024-02-26 14:04:10 2024-02-26 14:04:10 Outpatient [...] 16:09:00 2021-12-26 17:22:00 Emergency X MORGAN RAZO [place] [id number] [facility] 2021-12-26 16:09:00 2021-12-26 17:22:00 Emergency Morgan Razo [facility] [id number] [facility] 2021-12-26 00:00:00 2021-12-26 00:00:00 Orders Only Doctor Unassigned, [place] [facility] [id number] [facility] 2021-02-12 11:15:00 2021-02-12 11:13:06 Outpatient PADMINI LUIS [facility] [id number] [facility] 2021-01-22 11:20:00 2021-01-22 11:12:01 Outpatient PADMINI LUIS [facility] [id number] [facility] Results Test Description Test Time Test Comments Results Result Co mments Source CULTURE, URINE 2023-04-19 12:38:09 SPECIMEN NUMBER: [id number] CULTURE, URINE SPECIMEN NUMBER: [id number] SOURCE: URINE REPORT STATUS: FINAL FINAL REPORT: 04/19/2023 <10,000 CFU/ML UROGENITAL CHIRAG PRESENT NO COMMON PATHOGENS UNLESS OTHERWISE INDICATED, ALL TESTING PERFORMED AT [facility] [address] [place] [address] CERTIFIED DIETARY MANAGER: SID SRINIVASAN M.D. CLIA NUMBER [id number] [place]. [id number] CULTURE, URINE 2023-03-15 14:24:02 SPECIMEN NUMBER: [id number] CULTURE, URINE SPECIMEN NUMBER: [id number] SPECIMEN COMMENT: URINE SOURCE: URINE REPORT STATUS: FINAL FINAL REPORT: 03/15/2023 NO GROWTH AFTER 36 HOURS INCUBATION UNLESS OTHERWISE INDICATED, ALL TESTING PERFORMED AT [facility] [address] [place] [address] CERTIFIED DIETARY MANAGER: SID SRINIVASAN M.D. CLIA NUMBER [id number] [place] [id number] VITAMIN [id number] 05:38:10* Test Item Value Reference Range Interpretation Comme nts VITAMIN B-12 (test code = 2840) 461 PG/ML 200-950 UNLESS OTHERWISE INDICATED, ALL TESTING PERFORMED AT [facility] [address] [place] [address] CERTIFIED DIETARY MANAGER: SID SRINIVASAN M.D. CLIA NUMBER [id number] [place] [id number] CBC W/AUTO DIFF WITH [id number] 03:36:08* Test Item Value Reference Range Interpretation [...] 0.00-0.10 ABS NUCLEATED RBCS (test code = 43792) 0.00 K/UL 0.00-0.11 PAP TEST, [id number] 09:35:37* Test Item Value Reference Range Interpretation Comme nts SOURCE: (test code = 8001) Cervical SLIDES: (test code = 8011) 1 LMP: (test code = 8021) SEE NOTE POST MENOPAUSAL SPECIMEN ADEQUACY: (test code = 99294) (NOTE) Satisfactory for evaluation. Endocervical cells/transformation zone component present. INTERPRETATION: (test code = 27463) NILM/NO EPITH. ABNORMALITY;SEE BELOW -- ---- NEGATIVE FOR INTRAEPITHELIAL LESION OR MALIGNANCY (NILM) ------- OTHER COMMENTS: (test code = 8081) (NOTE) Atrophic changes present.Partially obscuring inflammation is present. HOSPICE MASSAGE THERAPIST : (test code = 8101) Sujey Graham TECHNOLOGIST: (test code = 8111) Shirin Cortez,[facility](ASCP) CT(IAC) LOCATION: (test code = 43783) (NOTE) Specimens proces sed and interpreted at [facility], [address] [place] [address], , CLIA: [id number] CPT: (test code = 8140) (NOTE) [address] is a screening test with an inherent, but low probability of error. Your patient should be reminded to consult you immediately if she experiences any suspicious signs or symptoms, regardless of her Pap test result. An alternate report format containing images or consolidated prior Pap history is available as applicable. UNLESS OTHERWISE INDICATED, ALL TESTING PERFORMED [facility] [address] [place] [address] CERTIFIED DIETARY MANAGER: JEY KAISER M.D. CLIA NUMBER [id number] [place]. [id number]
--- NOTE | 2024-10-24 18:19 | ER ---
Nurse's Notes [facility] Name: Dayanara Plummer Age: 59 yrs Sex: Female : 1965 Arrival Date: 10/24/2024 Time: 16:51 Bed DX2 Private MD: Diagnosis: Epidermal cyst Presentation: 10/24 18:08 Chief complaint: Patient states: Cyst removal from scalp 7 days ago reporting pain. jl7 Coronavirus screen: At this time, the client does not indicate any symptoms associated with coronavirus-19. Ebola Screen: No symptoms or risks identified at this time. Initial Sepsis Screen: Does the patient meet any 2 criteria? No. Patient's initial sepsis screen is negative. Does the patient have a suspected source of infection? No. Patient's initial sepsis screen is negative. Risk Assessment: Do you want to hurt yourself or someone else? Patient reports no desire to harm self or others. Onset of symptoms is unknown. 18:08 Method Of Arrival: Ambulatory 7 18:08 Acuity: YANET 3 jl7 Triage Assessment: 18:10 General: Appears in no apparent distress. uncomfortable, Behavior is calm, cooperative, jl7 appropriate for age. Pain: Complains of pain in scalp Pain currently is 8 out of 10 on a pain scale. Neuro: Level of Consciousness is awake, alert, obeys commands, Oriented to person, place, time, situation. Cardiovascular: Patient's skin is warm and dry. Respiratory: Airway is patent Respiratory effort is even, unlabored, Respiratory pattern is regular, symmetrical. Derm: Skin is pink, warm \T\ dry. Historical: - Allergies: 18:10 No Known Allergies; jl7 - PMHx: 18:10 None; jl7 - PSHx: 18:10 Cholecystectomy; jl7 - Immunization history:: Adult Immunizations unknown. - Infectious Disease History:: Denies. - Social history:: Smoking status: Patient denies any tobacco usage or history of. Screenin:32 [facility] ED Fall Risk Assessment (Adult) History of falling in the last 3 months, kb3 including since admission No falls in past 3 months (0 pts) Confusion or Disorientation No (0 pts) Intoxicated or Sedated No (0 pts) Impaired Gait Yes (1 pt) Mobility Assist Device Used No (0 pt) Altered Elimination No (0 pt) Score/Fall Risk Level 0 - 2 = Low Risk Oriented to surroundings. Abuse screen: Denies threats or abuse. Denies injuries from another. Nutritional screening: No deficits noted. Tuberculosis screening: No symptoms or risk factors identified. Assessment: 18:30 Reassessment: Pt seen, assessed and discharge by SHAYY Flores. ss 18:31 General: Appears in no apparent distress. comfortable, Behavior is calm, cooperative. kb3 Derm: Reports Healing surgical room to posterior parietal scalp. No drainage or redness noted. Vital Signs: 18:08 BP 131 / 77; Pulse 81; Resp 17; Temp 98.6; Pulse Ox 97% ; Pain 8/10; jl7 18:08 Pain Scale: Adult [facility] ED Course: 16:54 Patient arrived in ED. ra3 18:10 Andreea Chris MD is Attending Physician. gb1 18:10 Triage completed. jl7 18:10 Mark Blair FNP-Alissa is [facility]. dr5 18:10 Arm band placed on right wrist. jl7 18:30 No provider procedures requiring assistance completed. Patient did not have IV access ss during this emergency room visit. 18:32 Patient has correct armband on for positive identification. Provided Education on: Plan kb3 of care. Administered Medications: No medications were administered Medication: 18:32 VIS not applicable for this client. kb3 Outcome: 18:19 Discharge ordered by . dr5 18:30 Discharged to home ambulatory, ss 18:30 Condition: good 18:30 Discharge instructions given to patient, Instructed on discharge instructions, follow up and referral plans. dc instructions given by SHAYY Flores Demonstrated understanding of instructions, follow-up care, 18:31 Patient left the ED. ss Signatures: Carmen Jack, RN RN ss Jorge Lopez RN RN jl7 Kerry Vora RN RN kb3 Andreea Chris MD MD gb1 Alva, Ruby ra3 Mark Blair FNP-C LITIGATION MANAGER-Cdr5
--- NOTE | 2024-10-24 18:20 | EDPHYS ---
Physician Documentation [facility] Name: Dayanara Plummer Age: 59 yrs Sex: Female : 1965 Arrival Date: 10/24/2024 Time: 16:51 Bed DX2 Private MD: ED Physician Andreea Chris HPI: 10/24 18:36 This 59 yrs old Female presents to ER via Ambulatory with complaints of Head dr5 pain Post Cyst Removal. 18:36 Onset: The symptoms/episode began/occurred 1 week(s) ago. Associated signs and dr5 symptoms: The patient has no apparent associated signs or symptoms. Patient is a 5-year-old female with no past med history coming in for head pain after epidermal pilar cyst removal was completed by Dr. Macias 1 week ago. Patient did not realize that she had Bactrim prescribed and started taking yesterday. Patient reports she is concerned that her wound might be getting infected.. Historical: - Allergies: 18:10 No Known Allergies; jl7 - PMHx: 18:10 None; jl7 - PSHx: 18:10 Cholecystectomy; jl7 - Immunization history:: Adult Immunizations unknown. - Infectious Disease History:: Denies. - Social history:: Smoking status: Patient denies any tobacco usage or history of. ROS: 18:36 Constitutional: as per hpi dr5 Exam: 18:36 Constitutional: This is a well developed, well nourished patient who is awake, alert, dr5 and in no acute distress. Head/Face: Normocephalic, atraumatic. Eyes: Pupils equal round and reactive to light, extra-ocular motions intact. Lids and lashes normal. Conjunctiva and sclera are non-icteric and not injected. Cornea within normal limits. Periorbital areas with no swelling, redness, or edema. Neck: Trachea midline, no thyromegaly or masses palpated, and no cervical lymphadenopathy. Supple, full range of motion without nuchal rigidity, or vertebral point tenderness. No Meningismus. Chest/axilla: Normal chest wall appearance and motion. Nontender with no deformity. No lesions are appreciated. Cardiovascular: Regular rate and rhythm with a normal S1 and S2. Normal PMI, no JVD. No pulse deficits. Respiratory: Lungs have equal breath sounds bilaterally, clear to auscultation. No rales, rhonchi or wheezes noted. No increased work of breathing, no retractions or nasal flaring. Abdomen/GI: Soft, non-tender, non-distended Back: No spinal tenderness. No costovertebral tenderness. Full range of motion. 18:36 Skin: lesion(s), noted, and can be described as nontender, located on the top of head, Wound recheck: Abscess: the wound has improved, Vital Signs: 18:08 BP 131 / 77; Pulse 81; Resp 17; Temp 98.6; Pulse Ox 97% ; Pain 8/10; jl7 18:08 Pain Scale: Adult jl7 MDM: 18:19 Medical Screening Exam initiated dr5 18:36 Differential diagnosis: viral Infection, bacterial infection, Cellulitis. Data dr5 reviewed: vital signs, nurses notes. Historians other than the Patient: Daughter/Son: Daughter. Care significantly affected by the following Social Determinants of Health: Poor access to healthcare and/or lack of insurance, Poor access to transportation, Problems related to employment. Counseling: I had a detailed discussion with the patient and/or guardian regarding the historical points, exam findings, and any diagnostic results supporting the discharge/admit diagnosis, the presence of at least one elevated blood pressure reading (>120/80) during this emergency department visit, the need for outpatient follow up, for definitive care, with Dr. Macias as scheduled on , 10/27/2024. ED course: Patient's vital signs are unremarkable. Wound is healing without signs of infection. No sign of purulent discharge, tenderness to palpation, or fever in ER. Had lengthy conversation with patient regarding schedule of pain medications and utilizing Zofran before hydrocodone. Return to ER if patient develops fever, discharge coming from wound, tenderness to palpation develops. Keep follow-up appointment on with Dr. Macias. All questions answered.. Administered Medications: No medications were administered Disposition Summary: 10/24/24 18:19 Discharge Ordered Notes: Location: Home dr5 Condition: Stable dr5 Diagnosis - Epidermal cyst dr5 Followup: dr5 - With: Emergency Department - When: As needed - Reason: Worsening of condition Followup: dr5 - With: Private Physician - When: 1 - 2 days - Reason: Recheck today's complaints, Continuance of care, Re-evaluation by your physician Discharge Instructions: - Discharge Summary Sheet dr5 - Epidermoid Cyst dr5 - Epidermoid Cyst Removal, Care After dr5 Forms: - Medication Reconciliation Form dr5 - Patient Portal Instructions dr5 - Leadership Thank You Letter dr5 Signatures: Jorge Lopez RN RN jl7 Mark Blair, KAY-C CONTOUR SANDER-Cdr5
== END 2024-10-24 18:31 | disposition home or self-care (01) ==
LOC: ER 16:51
DX: G89.18 Other acute postprocedural pain (principal); R51.9 Headache, unspecified
CPT/HCPCS: 99282

== ENCOUNTER 2024-10-25 03:27 | Emergency (ER) | payer OTHER ==
--- OUTSIDE RECORDS SUMMARY | 2024-10-25 03:30 | XMS REPORT | Continuity of Care Document ---
Author Name Unknown Address [address] [place] [address] [facility] thconnect Address [address] [place] [address] Care Team Providers Care Supervisor [employer] Name Role Phone [facility], [facility] Care Physician Unavailable MICHAEL REHMAN Attending Clinician Unavailable [facility] Attending Clinician Unavailable MORGAN RAZO Attending Clinician Unavailable Morgan Sun Attending Clinician [phone] Doctor Unassigned, [place] Attending Clinician U PADMINI Martines Attending Clinician Unavailable MORGAN RAZO Admitting Clinician Unavailable Payers Payer Name Policy Type Policy Number Effective Date Expirati on Date Source [employer] ARCHITECT 94 ON 9 [id number] 2023 00:00:00 Problems Condition Name Condition Details [...] problems No known active problems Disease [facility] Allergies, Adverse Reactions, Alerts Allergy Name Allergy Type Status Severity Reaction(s) Onset Date Inactive Date Treating Clinician Comments Source NO KNOWN ALLERGIE S Drug Class Active [facility] Social History Social Habit Start Date Stop Date Quantity Comments Source Sexual orientation Kane hurtado Marci - External ASSERTION Not Cindy Covarrubias - External Exposure to SARS-CoV-2 (event) Not sure [facility] Alcoholic beverage intake 2024-10-03 00:00:00 2024-10-03 00:00:00 [...] 2021-12-26 00:00:00 Current non-drinker of alcohol (finding) [facility] Sex assigned at 1965 00:00:00 [...] Cap DR Particles 2023-10 00:00: 00 Yes [id number] 20mg QD Take 1 capsule (20 mg total) by mouth daily. Cindy christianson FLUTICASONE PROPIONATE, NASAL, (Flonase Allergy Relief) 50 MCG/ACT nasal Suspension 11-27 00:00: 00 10-03 00:00 :00 No Cindy christianson Meclizine HCl 12.5 MG oral Tablet 11-27 00:00: 00 09-19 00:00 :00 No Cindy christianson butalbital- acetaminoph en-caff 50-325-40 mg tablet 12-26 00:00: 00 Yes [id number] 1{tbl} Take 1 tablet by mouth every 4 (four) hours as needed for Pain (scale 4-6). [facility] HYDROcodone -acetaminop hen (NORCO 5) 5-325 mg tablet 07-01 00:00: 00 Yes 1{tbl} Take 1 Tab by mouth every 4 (four) hours as needed for Pain. [facility] Vital Signs Vital Name Observation Time Observation Value Comments S kassy Body weight 2024-10-03 16:04:00 67.132 kg Bethany buckner Seybold - External BMI 2024-10-03 16:04:00 27.07 kg/m2 Bethany Covarrubias - External Oxygen saturation in Arterial blood by Pulse oximetry 2024-10-03 16:04:00 97 /min Cindy abreu - External Systolic blood pressure 2024-10-03 16:04:00 122 mm[Hg] Cindy abreu - External Diastolic blood pressure 2024-10-03 16:04:00 70 mm[Hg] Cindy abreu - External Heart rate 2024-10-03 16:04:00 72 /min Kelse y Seybold - External Body temperature 2024-10-03 16:04:00 36.78 Naomy Cindy Seybold - External Respiratory rate 2024-10-03 16:04:00 16 /min Cindy Seybold - External Body height 2024-10-03 16:04:00 157.5 cm Bethany ey Seybold - External Systolic blood [...] Systolic blood pressure 2021-12-26 22:09:00 139 mm[Hg] [facility] Diastolic blood pressure 2021-12-26 22:09:00 75 mm[Hg] [facility] Heart rate 2021-12-26 22:09:00 80 /min [facility] Body temperature 2021-12-26 22:09:[address] [facility] Respiratory rate 2021-12-26 22:09:00 18 /min [facility] Body weight 2021-12-26 22:09:00 66.679 kg [facility] BMI 2021-12-26 22:09:00 30.72 kg/m2 [facility] Oxygen saturation in Arterial blood by Pulse oximetry 2021-12-26 22:09:00 98 /min [facility] Procedures Procedure Date / Time Performed Performing Clinicia n Source XR NASAL BONES 2021-12-26 22:43:57 Razo, Morgan R [facility] CONSENT/REFUSAL FOR DIAGNOSIS AND TREATMENT 2021-12-26 22:00:45 Doctor Unassigned, [place] [facility] Encounters Start Date/Time End Date/Time Encounter Type Admission Type Attending Clinicians Care Facility Care Department Encounter ID Source 2024-11-11 09:15:00 2024-11-11 09:15:00 Outpatient MICHAEL REHMAN [id number] Cindy Covarrubias 2024-10-11 00:00:00 2024-10-11 00:00:00 Outpatient MICHAEL REHMAN [id number] Cindy Covarrubias 2024-10-04 00:00:00 2024-10-04 00:00:00 Outpatient MICHAEL REHMAN [id number] Cindy Covarrubias 2024-10-03 10:30:00 2024-10-03 10:30:00 Outpatient MICHAEL REHMAN [id number] Cindy Covarrubias 2024-09-19 14:00:00 2024-09-19 14:00:00 Outpatient MICHAEL REHMAN [id number] Cindy Covarrubias 2024-08-04 10:15:00 2024-08-04 10:15:00 Outpatient [facility] CINDY WILSON [id number] Cindy Covarrubias 2024-08-04 09:30:00 2024-08-04 09:30:00 Outpatient MICHAEL REHMAN [id number] Cindy Covarrubias 2024-02-26 14:04:10 2024-02-26 14:04:10 Outpatient [...] 16:09:00 2021-12-26 17:22:00 Emergency X MORGAN RAZO [facility] [id number] [facility] 2021-12-26 16:09:00 2021-12-26 17:22:00 Emergency Morgan Razo [facility] [id number] [facility] 2021-12-26 00:00:00 2021-12-26 00:00:00 Orders Only Doctor Unassigned, [place] [facility] [id number] [facility] 2021-02-12 11:15:00 2021-02-12 11:13:06 Outpatient PADMINI LUIS [facility] [id number] [facility] 2021-01-22 11:20:00 2021-01-22 11:12:01 Outpatient PADMINI LUIS [facility] [id number] [facility] Results Test Description Test Time Test Comments Results Result Co mments Source CULTURE, URINE 2023-04-19 12:38:09 SPECIMEN NUMBER: [id number] CULTURE, URINE SPECIMEN NUMBER: [id number] SOURCE: URINE REPORT STATUS: FINAL FINAL REPORT: 04/19/2023 <10,000 CFU/ML UROGENITAL CHIRAG PRESENT NO COMMON PATHOGENS UNLESS OTHERWISE INDICATED, ALL TESTING PERFORMED AT [facility] [address] [place] [address] [employer] ATTENDANT: SID SRINIVASAN M.D. CLIA NUMBER [id number] [place]. [id number] CULTURE, URINE 2023-03-15 14:24:02 SPECIMEN NUMBER: [id number] CULTURE, URINE SPECIMEN NUMBER: [id number] SPECIMEN COMMENT: URINE SOURCE: URINE REPORT STATUS: FINAL FINAL REPORT: 03/15/2023 NO GROWTH AFTER 36 HOURS INCUBATION UNLESS OTHERWISE INDICATED, ALL TESTING PERFORMED AT [facility] [address] [place] [address] [employer] ATTENDANT: SID SRINIVASAN M.D. CLIA NUMBER [id number] [place]. [id number] VITAMIN [id number] 05:38:10* Test Item Value Reference Range Interpretation Comme nts VITAMIN B-12 (test code = 2840) 461 PG/ML 200-950 UNLESS OTHERWISE INDICATED, ALL TESTING PERFORMED AT [facility] [address] [place] [address] [employer] ATTENDANT: SID SRINIVASAN M.D. CLIA NUMBER [id number] [place]. [id number] CBC W/AUTO DIFF WITH [id number] 03:36:08* Test Item Value Reference Range Interpretation [...] 0.00-0.10 ABS NUCLEATED RBCS (test code = 27695) 0.00 K/UL 0.00-0.11 PAP TEST, [id number] 09:35:37* Test Item Value Reference Range Interpretation Comme nts SOURCE: (test code = 8001) Cervical SLIDES: (test code = 8011) 1 LMP: (test code = 8021) SEE NOTE POST MENOPAUSAL SPECIMEN ADEQUACY: (test code = 90750) (NOTE) Satisfactory for evaluation. Endocervical cells/transformation zone component present. INTERPRETATION: (test code = 45432) NILM/NO EPITH. ABNORMALITY;SEE BELOW -- ---- NEGATIVE FOR INTRAEPITHELIAL LESION OR MALIGNANCY (NILM) ------- OTHER COMMENTS: (test code = 8081) (NOTE) Atrophic changes present.Partially obscuring inflammation is present. MERCHANDISING INTERN : (test code = 8101) Dayanara Graham TECHNOLOGIST: (test code = 8111) Shirin Cortez,[facility](ASCP) CT(IAC) LOCATION: (test code = 39953) (NOTE) Specimens proces sed and interpreted at [facility], [address] [place] [address], , CLIA: [id number] CPT: (test code = 8140) (NOTE) [address] is a screening test with an inherent, but low probability of error. Your patient should be reminded to consult you immediately if she experiences any suspicious signs or symptoms, regardless of her Pap test result. An alternate report format containing images or consolidated prior Pap history is available as applicable. UNLESS OTHERWISE INDICATED, ALL TESTING PERFORMED [facility] [address] [place] [address] [employer] ATTENDANT: JEY KAISER M.D. CLIA NUMBER [id number] [place]. [id number]
[2024-10-25] MEDS ORDERED: FAMOTIDINE 20 MG/2 ML VIAL IV ONE (04:05)
[2024-10-25] MEDS ORDERED: METOCLOPRAMIDE 10 MG/2mL INJ ONE (04:05)
[2024-10-25] MEDS ORDERED: NA CHLORIDE 0.9% 1,000 ML ONE (04:06)
[2024-10-25 04:27] LABS: PT Prothrombin Time 11.3 SECONDS (9.4-12.5); Protime INR 1.01
[2024-10-25 04:35] LABS: Absolute Lymphocytes (CBC) 1.9 K/uL (0.7-4.9); Absolute Monocytes 0.6 K/uL (0.1-1.3); Absolute Neutrophil 7.9 K/uL (1.8-8.0); Basophils % 0.4 % (0-1.3); Eosinophils % 0.3 % (0-4.4); Hematocrit 37.2 % (36.0-45.0); Hemoglobin 12.3 g/dL (12.0-15.0); Lymphocytes % 18.6 % (15.3-44.8); MCH 29.1 pg (27.0-35.0); MPV 9.2 fL (7.6-11.3); Monocytes % 5.6 % (3.3-12.3); Neutrophils % 75.1 % (41.7-73.7); Platelets 355 thou/uL (152-406); RBC Red Blood Cell Count 4.22 M/uL (3.86-4.86); Red Cell Distribution Width 12.7 % (12.1-15.2)
[2024-10-25 04:40] LABS: ALT/SGPT 19 U/L (13-56); AST/SGOT 16 U/L (15-37); Albumin 3.6 g/dL (3.4-5.0); Albumin/Globulin Ratio 0.9 (1.1-1.8); Alkaline Phosphatase 72 U/L (45-117); Anion Gap 12.8 mEq/L (5.0-15.0); BUN Blood Urea Nitrogen 12 mg/dL (7-18); Bicarbonate 22 mEq/L (21-32); Bilirubin Total 0.2 mg/dL (0.2-1.0); Globulin 3.8 g/dL (2.3-3.5); Glomerular Filtration Rate 76 ml/min (=/>90); Glucose Level 146 mg/dL (74-106); Lipase 63 U/L (13-75); Magnesium 2.2 mg/dL (1.6-2.4); Potassium 3.8 mEq/L (3.5-5.1); Protein, Total 7.4 g/dL (6.4-8.2); Sodium Level 136 mEq/L (136-145); Troponin High Sensitivity 3.1 pg/mL (<58.9)
[2024-10-25 04:46] LABS: Bilirubin Direct < 0.2 mg/dL (0-0.2)
[2024-10-25] MEDS ORDERED: DIAZEPAM 10 MG/2 ML INJ SYRINGE ONE (05:55)
[2024-10-25] MEDS ORDERED: dexAMETHasone 10 MG/ML VIAL ONE (05:57)
[2024-10-25 06:27] LABS: Sqamous Epithelial <5 /HPF (None Seen); Urine Bacteria None Seen /HPF (<20); Urine Bilirubin NEGATIVE (Negative); Urine Blood Negative (Negative); Urine Clarity Turbid (Clear); Urine Color Light-Yellow (Yellow); Urine Culture Reflex Order REFLEXED; Urine Glucose NEGATIVE (Negative); Urine Ketones NEGATIVE (Negative); Urine Microscopic Reflex YN ORDER UMIC; Urine Mucus Slight /HPF (None Seen); Urine Nitrite NEGATIVE (Negative); Urine Protein NEGATIVE (Negative); Urine Urobilinogen Normal (Normal); Urine WBC 20-50 /HPF (<5); Urine pH 6.5 (5.0-7.0)
--- NOTE | 2024-10-25 06:29 | ER ---
Nurse's Notes [facility] Name: Dayanara Plummer Age: 59 yrs Sex: Female : 1965 Arrival Date: 10/25/2024 Time: 03:27 Bed 4 Private MD: Diagnosis: Nausea with vomiting, unspecified;Headache;UTI/ Urinary tract infection, site not specified Presentation: 10/25 03:32 Chief complaint: Patient states: I have pain the back of my head where i had a cyst bm8 removed last week. I feel weak all over. Coronavirus screen: At this time, the client does not indicate any symptoms associated with coronavirus-19. Ebola Screen: Patient negative for fever greater than or equal to 101.5 degrees Fahrenheit, and additional compatible Ebola Virus Disease symptoms Patient denies exposure to infectious person. Patient denies travel to an Ebola-affected area in the 21 days before illness onset. No symptoms or risks identified at this time. Initial Sepsis Screen: Does the patient meet any 2 criteria? No. Patient's initial sepsis screen is negative. Does the patient have a suspected source of infection? No. Patient's initial sepsis screen is negative. Risk Assessment: Do you want to hurt yourself or someone else? Patient reports no desire to harm self or others. Onset of symptoms was October 22, 2024. 03:32 Method Of Arrival: EMS: [facility] bm8 03:32 Acuity: YANET 3 bm8 Triage Assessment: 03:44 General: Appears in no apparent distress. uncomfortable, Behavior is calm, cooperative, bm8 appropriate for age. Pain: Complains of pain in occipital area and base of the skull Pain currently is 8 out of 10 on a pain scale. EENT: No deficits noted. No signs and/or symptoms were reported regarding the EENT system. Neuro: No deficits noted. Level of Consciousness is awake, alert, obeys commands, Oriented to person, place, time, situation, Appropriate for age. Cardiovascular: Denies chest pain, Heart tones S1 S2 present Capillary refill < 3 seconds in bilateral fingers Patient's skin is warm and dry. Respiratory: Airway is patent Trachea midline Respiratory effort is even, unlabored, Respiratory pattern is regular, symmetrical, Breath sounds are clear bilaterally. GI: No signs and/or symptoms were reported involving the gastrointestinal system. : No signs and/or symptoms were reported regarding the genitourinary system. Derm: No signs and/or symptoms reported regarding the dermatologic system. Musculoskeletal: No signs and/or symptoms reported regarding the musculoskeletal system. Historical: - Allergies: 03:44 No Known Allergies; bm8 - Home Meds: 03:41 Zofran 4mg Oral 4 mg prn q6 [Active]; lactulose 10 gram/15 mL (15 mL) Oral solution 15 bm8 mL daily for constipation [Active]; [place] Oral [Active]; duloxetine 20 mg oral Capsule, Delayed Release Sprinkle 1 cap once [Active]; Bactrim DS 800-160 mg Oral tablet 1 tab 2 times per day [Active]; - PSHx: 03:44 Cholecystectomy; bm8 - Immunization history:: Adult Immunizations up to date. - Infectious Disease History:: Denies. - Social history:: Smoking status: Patient denies any tobacco usage or history of. Screenin:00 [facility] ED Fall Risk Assessment (Adult) History of falling in the last 3 months, al5 including since admission No falls in past 3 months (0 pts) Confusion or Disorientation No (0 pts) Intoxicated or Sedated No (0 pts) Impaired Gait Yes (1 pt) Mobility Assist Device Used No (0 pt) Altered Elimination No (0 pt) Score/Fall Risk Level 0 - 2 = Low Risk Oriented to surroundings, Maintained a safe environment, Hourly rounding (assess needs \T\ fall precautionary measures) done. Abuse screen: Denies threats or abuse. Denies injuries from another. Nutritional screening: No deficits noted. Tuberculosis screening: No symptoms or risk factors identified. Assessment: 03:55 General: Appears in no apparent distress. uncomfortable, Behavior is calm, cooperative. al5 Pain: Complains of pain in base of the skull and occipital area Pain currently is 8 out of 10 on a pain scale. Quality of pain is described as pressure. Neuro: Level of Consciousness is awake, alert, obeys commands, Oriented to person, place, time, situation. Cardiovascular: Capillary refill < 3 seconds Patient's skin is warm and dry. Respiratory: Reports shortness of breath Airway is patent Respiratory effort is even, unlabored, Respiratory pattern is regular, symmetrical. GI: Abdomen is non-distended, Reports nausea. : No signs and/or symptoms were reported regarding the genitourinary system. EENT: No signs and/or symptoms were reported regarding the EENT system. Derm: Skin is intact, is healthy with good turgor, Skin is pink, warm \T\ dry. normal. Musculoskeletal: No signs and/or symptoms reported regarding the musculoskeletal system. 05:34 Reassessment: Patient appears in no apparent distress at this time. No changes from al5 previously documented assessment. Patient and/or family updated on plan of care and expected duration. Pain level reassessed. Patient is alert, oriented x 3, equal unlabored respirations, skin warm/dry/pink. nausea has decreased but pain is still there. notified provider, med orders given at this time. 06:35 Reassessment: Patient appears in no apparent distress at this time. No changes from al5 previously documented assessment. Patient and/or family updated on plan of care and expected duration. Pain level reassessed. Patient is alert, oriented x 3, equal unlabored respirations, skin warm/dry/pink. discharge pending po challenge Patient states feeling better. Vital Signs: 03:32 BP 142 / 77; Pulse 112; Resp 19; Temp 98.4; Pulse Ox 97% on R/A; Weight 63 kg; Height 5 bm8 ft. 2 in. ; Pain 8/10; 04:00 BP 136 / 74; Pulse 97; Resp 20; Pulse Ox 98% on R/A; al5 04:20 BP 132 / 69; Pulse 108; Resp 24; Pulse Ox 99% on 2 lpm NC; al5 04:30 BP 134 / 71; Pulse 100; Resp 18; Pulse Ox 98% on 2 lpm NC; al5 05:00 BP 117 / 78; Pulse 103; Resp 19; Pulse Ox 98% on 2 lpm NC; al5 05:40 BP 133 / 71; Pulse 110; Resp 18; Pulse Ox 98% on R/A; al5 06:00 BP 101 / 53; Pulse 100; Resp 19; Pulse Ox 97% on R/A; al5 06:30 BP 118 / 82; Pulse 105; Resp 19; Pulse Ox 95% on R/A; al5 03:32 Body Mass Index 25.40 (63.00 kg, 157.48 cm) bm8 03:32 Pain Scale: Adult bm8 04:20 on NC for comfort, felt SOB al5 ED Course: 03:28 Patient arrived in ED. al5 03:29 Alden Tejeda PA is PHCP. cp 03:29 Alden Palacios MD is Attending Physician. cp 03:31 Constantino Holman, RN is Primary Nurse. bm8 03:34 Triage completed. bm8 03:44 Arm band placed on left wrist. bm8 04:00 Patient has correct armband on for positive identification. Bed in low position. Call al5 light in reach. Side rails up X2. family at bedside. Provided Education on: plan of care. 04:00 No provider procedures requiring assistance completed. al5 04:02 XRAY Chest (1 view) In Process Unspecified. EDMS 04:03 Inserted saline lock: 22 gauge in right antecubital area, using aseptic technique. al5 Blood collected. Flushed with 10 mL NS. 05:36 CT Head Brain wo Cont In Process Unspecified. EDMS 07:09 IV discontinued, intact, bleeding controlled, No redness/swelling at site. Pressure al5 dressing applied. Administered Medications: 04:31 Drug: metoCLOPramide IVP 10 mg IVP once; over 1 to 2 minutes Route: IVP; Site: left al5 antecubital; 05:31 Follow up: Response: No adverse reaction; Nausea is decreased al5 04:31 Drug: Famotidine IVP 20 mg IVP once; dilute with 10 mL 0.9% NaCl; give over 2 minutes al5 Route: IVP; Site: left antecubital; 05:31 Follow up: Response: No adverse reaction; Pain is unchanged, physician notified al5 04:31 Drug: NS 0.9% IV 1000 ml IV at 1000 ml once; to be given as a bolus over 60 minutes al5 Route: IV; Rate: 1000 ml; Site: left antecubital; 05:32 Follow up: Response: No adverse reaction; IV Status: Completed infusion; IV Intake: al5 1000ml 06:03 Drug: Diazepam IVP 5 mg IVP once Route: IVP; Site: left antecubital; al5 06:55 Follow up: Response: No adverse reaction al5 06:03 Drug: Dexamethasone IVP 10 mg IVP once; (not to exceed 40 mg) Route: IVP; Site: left al5 antecubital; 06:55 Follow up: Response: No adverse reaction; Pain is decreased al5 06:55 Drug: Ciprofloxacin PO 500 mg PO once Route: PO; al5 07:10 Follow up: Response: No adverse reaction al5 Medication: 06:42 VIS not applicable for this client. al5 Intake: 05:32 IV: 1000ml; Total: 1000ml. al5 Outcome: 06:28 Discharge ordered by . cp 07:09 Discharged to home via wheelchair, with family, al5 07:09 Condition: stable 07:09 Discharge instructions given to patient, family, Instructed on discharge instructions, follow up and referral plans. medication usage, Demonstrated understanding of instructions, follow-up care, medications, Prescriptions given X 3, 07:10 Patient left the ED. al5 Signatures: Dispatcher [employer] EDMS Alden Tejeda PA PA cp McDonald, Brad, RN RN bm8 Genie Nelson RN RN al5
--- NOTE | 2024-10-25 06:29 | EDPHYS ---
Physician Documentation [facility] Name: Dayanara Plummer Age: 59 yrs Sex: Female : 1965 Arrival Date: 10/25/2024 Time: 03:27 Bed 4 Private MD: Alden Gutierrez HPI: 10/25 03:35 This 59 yrs old Female presents to ER via EMS with complaints of General cp Weakness. 03:35 The patient's problem is reported as weakness, that is generalized. cp 03:35 Onset: The symptoms/episode began/occurred gradually, and became worse today. cp Associated signs and symptoms: Pertinent positives: headache, nausea, recent surgery, vomiting. Patient's baseline: Neuro: alert and fully oriented, Motor: no deficits, Ambulation: walks without assistance, Speech: normal. Historical: - Allergies: 03:44 No Known Allergies; bm8 - Home Meds: 03:41 Zofran 4mg Oral 4 mg prn q6 [Active]; lactulose 10 gram/15 mL (15 mL) Oral solution 15 bm8 mL daily for constipation [Active]; [place] Oral [Active]; duloxetine 20 mg oral Capsule, Delayed Release Sprinkle 1 cap once [Active]; Bactrim DS 800-160 mg Oral tablet 1 tab 2 times per day [Active]; - PSHx: 03:44 Cholecystectomy; bm8 - Immunization history:: Adult Immunizations up to date. - Infectious Disease History:: Denies. - Social history:: Smoking status: Patient denies any tobacco usage or history of. ROS: 03:40 Constitutional: Positive for poor PO intake, Negative for body aches, chills, fever, cp 03:40 Cardiovascular: Negative for chest pain, palpitations, cp 03:40 Respiratory: Negative for cough, shortness of breath, wheezing, 03:40 Abdomen/GI: Positive for nausea and vomiting, Negative for abdominal pain, diarrhea, constipation, 03:40 Neuro: Positive for headache, Negative for altered mental status, 03:40 Eyes: Negative for injury, pain, redness, and discharge, cp 03:40 ENT: Negative for drainage from ear(s), ear pain, sore throat, difficulty swallowing, cp difficulty handling secretions, 03:40 All other systems are negative, Exam: 03:45 Constitutional: The patient appears in no acute distress, alert, awake, cp non-diaphoretic, non-toxic, well developed, well nourished, uncomfortable, 03:45 Head/face: Noted is tenderness, that is moderate, of the left occipital area, left cp base of the skull, right occipital area and right base of the skull, 03:45 Eyes: Periorbital structures: appear normal, Pupils: equal, round, and reactive to light and accomodation, Extraocular movements: intact throughout, Conjunctiva: normal, no exudate, no injection, Sclera: no appreciated abnormality, Lids and lashes: appear normal, bilaterally, 03:45 ENT: External ear(s): are unremarkable, Nose: is normal, Mouth: Lips: moist, Oral mucosa: moist, Posterior pharynx: Airway: no evidence of obstruction, patent, 03:45 Chest/axilla: Inspection: normal, 03:45 Cardiovascular: Rate: tachycardic, Rhythm: regular, Edema: is not appreciated, JVD: is not appreciated, 03:45 Respiratory: the patient does not display signs of respiratory distress, Respirations: normal, no use of accessory muscles, no retractions, labored breathing, is not present, Breath sounds: are clear throughout, no decreased breath sounds, no stridor, no wheezing, 03:45 Abdomen/GI: Inspection: abdomen appears normal, Palpation: abdomen is soft and non-tender, in all quadrants, 03:45 Neuro: Orientation: to person, place \T\ time. Mentation: able to follow commands, Motor: moves all fours, no focal deficits, 04:22 ECG was reviewed by the Attending Physician. cp Vital Signs: 03:32 BP 142 / 77; Pulse 112; Resp 19; Temp 98.4; Pulse Ox 97% on R/A; Weight 63 kg; Height 5 bm8 ft. 2 in. ; Pain 8/10; 04:00 BP 136 / 74; Pulse 97; Resp 20; Pulse Ox 98% on R/A; al5 04:20 BP 132 / 69; Pulse 108; Resp 24; Pulse Ox 99% on 2 lpm NC; al5 04:30 BP 134 / 71; Pulse 100; Resp 18; Pulse Ox 98% on 2 lpm NC; al5 05:00 BP 117 / 78; Pulse 103; Resp 19; Pulse Ox 98% on 2 lpm NC; al5 05:40 BP 133 / 71; Pulse 110; Resp 18; Pulse Ox 98% on R/A; al5 06:00 BP 101 / 53; Pulse 100; Resp 19; Pulse Ox 97% on R/A; al5 06:30 BP 118 / 82; Pulse 105; Resp 19; Pulse Ox 95% on R/A; al5 03:32 Body Mass Index 25.40 (63.00 kg, 157.48 cm) bm8 03:32 Pain Scale: Adult bm8 04:20 on NC for comfort, felt SOB al5 MDM: 03:29 Medical Screening Exam initiated cp 06:28 Data reviewed: vital signs, nurses notes, lab test result(s), EKG, I have discussed the cp patient's presentation/case with the attending Emergency Department Physician;. 10/25 03:31 Order name: Basic Metabolic Panel; Complete Time: 05:00 10/25 05:01 Interpretation: Normal except: GLUC 146; GFR 76. 10/25 03:31 Order name: CBC with Diff; Complete Time: 05:00 10/25 05:01 Interpretation: [facility]% 75.1; Reviewed. 10/25 03:31 Order name: LFT's; Complete Time: 05:00 10/25 05:01 Interpretation: Reviewed. 10/25 03:31 Order name: Magnesium; Complete Time: 05:00 10/25 03:31 Order name: PT-INR; Complete Time: 05:00 10/25 03:31 Order name: Troponin HS; Complete Time: 05:00 10/25 05:01 Interpretation: Reviewed. 10/25 03:31 Order name: Urinalysis w/ reflexes; Complete Time: 06:44 cp 10/26 01:58 Interpretation: Normal except: [facility] Turbid; UESTR 500; UWBC 20-50; URBC 5-10. 10/25 03:31 Order name: Lipase; Complete Time: 05:00 10/25 03:31 Order name: Lactate w/ 2H reflex if indic.; Complete Time: 05:00 10/25 06:31 Order name: Urine Culture EDMS 10/25 03:31 Order name: XRAY Chest (1 view); Complete Time: 01:58 10/25 04:28 Order name: CT Head Brain wo Cont; Complete Time: 01:58 cp 10/25 03:31 Order name: Cardiac monitoring; Complete Time: 04:32 cp 10/25 03:31 Order name: EKG - Nurse/Tech; Complete Time: 04:32 cp 10/25 03:31 Order name: IV Saline Lock; Complete Time: 04:02 cp 10/25 03:31 Order name: Labs collected and sent; Complete Time: 04:02 cp 10/25 03:31 Order name: O2 Per Protocol; Complete Time: 04:03 cp 10/25 03:31 Order name: O2 Sat Monitoring; Complete Time: 04:03 cp 10/25 06:16 Order name: PO challenge; Complete Time: 06:55 cp EC:22 Rate is 101 beats/min. Rhythm is regular. CT interval is normal. QRS interval is cp prolonged at 132 msec. QT interval is normal. T waves are Inverted in leads V3, V4, V5. Interpreted by me. Reviewed by me. Administered Medications: 04:31 Drug: metoCLOPramide IVP 10 mg IVP once; over 1 to 2 minutes Route: IVP; Site: left al5 antecubital; 05:31 Follow up: Response: No adverse reaction; Nausea is decreased al5 04:31 Drug: Famotidine IVP 20 mg IVP once; dilute with 10 mL 0.9% NaCl; give over 2 minutes al5 Route: IVP; Site: left antecubital; 05:31 Follow up: Response: No adverse reaction; Pain is unchanged, physician notified al5 04:31 Drug: NS 0.9% IV 1000 ml IV at 1000 ml once; to be given as a bolus over 60 minutes al5 Route: IV; Rate: 1000 ml; Site: left antecubital; 05:32 Follow up: Response: No adverse reaction; IV Status: Completed infusion; IV Intake: al5 1000ml 06:03 Drug: Diazepam IVP 5 mg IVP once Route: IVP; Site: left antecubital; al5 06:55 Follow up: Response: No adverse reaction al5 06:03 Drug: Dexamethasone IVP 10 mg IVP once; (not to exceed 40 mg) Route: IVP; Site: left al5 antecubital; 06:55 Follow up: Response: No adverse reaction; Pain is decreased al5 06:55 Drug: Ciprofloxacin PO 500 mg PO once Route: PO; al5 07:10 Follow up: Response: No adverse reaction al5 Disposition: 10/26 02:12 Chart complete. cp 06:46 Co-signature as Attending Physician, Alden Palacios MD I agree with the assessment and [facility] plan of care. Disposition Summary: 10/25/24 06:28 Discharge Ordered Notes: Location: Home cp Problem: new cp Symptoms: have improved cp Condition: Stable cp Diagnosis - Nausea with vomiting, unspecified cp - Headache cp - UTI/ Urinary tract infection, site not specified lizette Followup: cp - With: Private Physician - When: 2 - 3 days - Reason: Recheck today's complaints Discharge Instructions: - Urinary Tract Infection, Adult lizette - Urinary Tract Infection, Adult, [id number] lizette - Discharge Summary Sheet cp - General Headache Without Cause cp - Nausea and Vomiting, Adult cp Forms: - Medication Reconciliation Form cp - Antibiotic Education cp - Prescription Opioid Use cp - Patient Portal Instructions cp - Leadership Thank You Letter cp Prescriptions: - Cipro 250 mg Oral tablet - take 1 tablet ORAL route every 12 hours; 14 tablet; Refills: 0, Product lizette Selection Permitted - Ibuprofen 800 mg Oral Tablet - take 1 tablet ORAL route every 8 hours As needed take with food; 30 tablet; cp Refills: 0, Product Selection Permitted - Reglan 10 mg Oral Tablet - take 1 tablet ORAL route every 6 hours take 30 minutes before meals and at cp bedtime; 20 tablet; Refills: 0, Product Selection Permitted Signatures: Dispatcher [employer] Alden Galo MD MD cha Page, Corey, PA PA cp Constantino Holman RN RN bm8 Genie Nelson RN RN al5 Corrections: (The following items were deleted from the chart) 10/25 03:31 03:31 BASIC METABOLIC PANEL+C.LAB.BRZ ordered. EDMS EDMS 03: 03:31 CBC+H.LAB.BRZ ordered. EDMS EDMS 03: 03:31 HEPATIC FUNCTION+C.LAB.BRZ ordered. EDMS EDMS 03: 03:31 MAGNESIUM+C.LAB.BRZ ordered. EDMS EDMS 03: 03:31 PROTIME (+INR)+COAG.LAB.BRZ ordered. EDMS EDMS 03: 03:31 Troponin High Sensitivity+C.LAB.BRZ ordered. EDMS EDMS 03: 03:31 Urinalysis+U.LAB.BRZ ordered. EDMS EDMS 03: 03:31 LIPASE+C.LAB.BRZ ordered. EDMS EDMS 03: 03:31 LACTATE+C.LAB.BRZ ordered. EDMS EDMS 03:32 03:32 Chest Single View+RAD.RAD.BRZ ordered. EDMS EDMS
[2024-10-25] MEDS ORDERED: CIPROFLOXACIN HCL 500 MG TAB ONE (06:48)
--- NOTE | 2024-10-25 06:48 | RAD REPORT ---
EXAMINATION: CT HEAD WITHOUT CONTRAST CLINICAL INDICATION: Female, 59 years old.Weakness;Headache TECHNIQUE: Axial CT images from the skull base to the vertex without intravenous contrast. Coronal an d sagittal reformatted images were created from the data set. One or more of the following dose reduction techniques were used: Automated exposure control, adjustment of the mA and/or kV according to patient size, and/or iterative reconstruction. Unless otherwise specified, incidental findings do not require dedicated imaging follow-up. [id number]. COMPARISON: 10/21/2024 FINDINGS: INTRACRANIAL: No acute intracranial hemorrhage. No hydrocephalus. No mass effect or midline shift. Mi ld chronic small vessel ischemic changes. VASCULATURE: No visualized abnormalities in the arteries or dural venous sinuses. SCALP/SKULL: No significant soft tissue or osseous abnormalities. SINUSES: The visualized paranasal sinuses and mastoid air cells are predominantly clear. IMPRESSION: No acute intracranial abnormality.
--- NOTE | 2024-10-25 07:42 | RAD REPORT ---
CLINICAL HISTORY: Vomiting. COMPARISON: None. TECHNIQUE: XR CHEST 1 VIEW 10/25/2024 3:31 AM PULLEY MORTISER OPERATOR FINDINGS: Cardiac silhouette is normal in size. Lungs are clear without consolidation, atelectasis, mass or luci ma. There is no pleural effusion. There is no pneumothorax. There are no acute osseous findings. IMPRESSION: Clear lungs. Electronically signed by: Zachary Beckwith MD 10/25/2024 07:02 AM PULLEY MORTISER OPERATOR RP Due to temporary technical issues with the PACS/[employer] reporting system, reports are being bjorn d by the in-house radiologist without review as a courtesy to ensure prompt reporting. The interpreting radiologist is fully responsible for the content of the report. Transcribed Date/Time: 10/25/2024 7:42 AM
[2024-10-25 12:56] VITALS: TEMP 98.4
[2024-10-25 13:06] VITALS: BP 118/82; O2SAT 95
--- NOTE | 2024-10-28 12:51 | EKG ---
Test Date: 2024-10-25 Test Time: 04:16:27 X Ray Inspector: GENNY MEASUREMENT RESULTS: Intervals: Rate: 101 OR: 152 QRSD: 132 QT: 366 QTc: 474 [place]acea: P: 65 OR: 152 QRS: 79 T: 26 INTERPRETIVE STATEMENTS: Sinus tachycardia Right bundle branch block Abnormal ECG Compared to ECG 10/17/2024 11:00:57 Sinus rhythm no longer present Electronically Signed On 10-28-24 12:48:37 INDUSTRIAL PRODUCTION MANAGER by Morgan Barbosa
== END 2024-10-25 07:10 | disposition home or self-care (01) ==
LOC: ER 03:27
DX: N39.0 Urinary tract infection, site not specified (principal); R51.9 Headache, unspecified; R53.1 Weakness
CPT/HCPCS: 96361; 93005; 87088; 85025; 81001; 87086; 80048; 36415; 83735; 85610; 80076; 83605; 84484; 83690; 70450; 71045; 96375; 96374; 99284; J2765; J3360; J1100; J7030